=== PATIENT | female | born 1965 | race Caucasian/White ===

== ENCOUNTER 2019-03-13 13:52 | Emergency (ER) | payer MEDICAID ==
[~2019-03-13] VITALS: Ht 162.6 cm; Wt 59.1 kg
[2019-03-13 14:34] VITALS: BP 154/92
[2019-03-13] MEDS ORDERED: HYDROcodone/acetaminophen 5mg/325mg tablet PO ONE (15:00)
--- NOTE | 2019-03-13 15:20 | NUR ---
PT REQUESTING SOFT C-COLLAR, PROVIDER OKAYED.
== END 2019-03-13 15:23 | disposition home or self-care (01) ==
LOC: ER 13:53
DX: M54.2 Cervicalgia (principal); M16.11 Unilateral primary osteoarthritis, right hip; I10 Essential (primary) hypertension; G89.29 Other chronic pain; F12.10 Cannabis abuse, uncomplicated; Z56.0 Unemployment, unspecified
CPT/HCPCS: 99282

== ENCOUNTER 2019-04-12 00:22 | Emergency (ER) | payer MEDICAID ==
[~2019-04-12] VITALS: Ht 162.6 cm; Wt 62.0 kg
[2019-04-12 00:29] VITALS: BP 187/109
--- NOTE | 2019-04-12 00:34 | NUR ---
Level [address] Anne at bedside when Pt placed in room and evalulated and DC'd Stroke Alert . He reports Pt's diagnosis is Quincy Palsey
[2019-04-12] MEDS ORDERED: PRED20TA PO (00:36)
[2019-04-12] MEDS ORDERED: ACYC-202 PO (00:36)
--- NOTE | 2019-04-12 02:40 | NUR ---
PT DC READY AND DISCHARGED BY ANOTHER RN PRIOR TO ME ASSESSING HER.
== END 2019-04-12 00:53 | disposition home or self-care (01) ==
LOC: ER 00:22
DX: G51.0 Bell's palsy (principal); H92.02 Otalgia, left ear; I10 Essential (primary) hypertension; G89.29 Other chronic pain; F12.90 Cannabis use, unspecified, uncomplicated; Z79.899 Other long term (current) drug therapy; Z56.0 Unemployment, unspecified
CPT/HCPCS: 93005; 99283

== ENCOUNTER 2020-12-26 10:28 | Emergency (ER) | payer MEDICAID ==
[~2020-12-26] VITALS: Ht 162.6 cm; Wt 65.9 kg
[~2020-12-26 10:28] MED LIST: LIDOcaine 1% 30ml preserv. free vial ONE
[2020-12-26 10:38] VITALS: BP 208/107
[2020-12-26] MEDS ORDERED: HYDROcodone/acetaminophen 10/325mg tab PO ONE (11:25)
[2020-12-26] MEDS ORDERED: SULF1TAB49 PO (11:29)
[2020-12-26] MEDS ORDERED: CEPH-585 PO (11:29)
== END 2020-12-26 11:40 | disposition home or self-care (01) ==
LOC: ER 10:29
DX: L02.512 Cutaneous abscess of left hand (principal); I10 Essential (primary) hypertension; G89.29 Other chronic pain; F12.90 Cannabis use, unspecified, uncomplicated; F11.90 Opioid use, unspecified, uncomplicated; Z56.0 Unemployment, unspecified; Z72.89 Other problems related to lifestyle
CPT/HCPCS: 10060; 99283; J2001

== ENCOUNTER 2021-03-19 11:40 | Inpatient (IN) | payer MEDICAID ==
[~2021-03-19] VITALS: Ht 162.6 cm; Wt 88.7 kg
[2021-03-19] MEDS ORDERED: DOXY100C97 PO ×2 (13:16→13:17)
[2021-03-19 14:37] LABS: BASOPHILS % (AUTO) 0.2 % (0-1); EOSINOPHILS % (AUTO) 0 % (0-6); HEMATOCRIT 41.4 % (35.0-45.0); LYMPHOCYTES # (AUTO) 0.4 X10'3 (1.1-4.8); LYMPHOCYTES % (AUTO) 2.9 % (21-51); MEAN CORPUSCULAR HEMOGLOBIN 28.2 PG (27.0-31.0); MEAN CORPUSCULAR HGB CONC 33.8 g/dL (33.0-36.5); MEAN CORPUSCULAR VOLUME 83.6 FL (78-98); MEAN PLATELET VOLUME 6.9 FL (7.4-10.4); MONOCYTES # (AUTO) 0.6 X10'3 (0-0.9); MONOCYTES % (AUTO) 4.1 % (2-12); NEUTROPHILS # (AUTO) 14.2 X10'3 (1.8-7.7); NEUTROPHILS % (AUTO) 92.8 % (42-75); PLATELET COUNT 62 X10'3 (140-440); RED BLOOD COUNT 4.96 X10'6 (4.20-5.60); RED CELL DISTRIBUTION WIDTH 16.9 % (11.5-14.5); WHITE BLOOD COUNT 15.3 X10'3 (4.5-11.0)
[2021-03-19 14:49] LABS: ALANINE AMINOTRANSFERASE 21 U/L (12-78); ALBUMIN 3.1 G/DL (3.4-5.0); ALKALINE PHOSPHATASE 124 IU/L (46-116); ANION GAP 10 (8-16); ASPARTATE AMINO TRANSFERASE 24 U/L (10-37); BILIRUBIN,TOTAL 4.6 MG/DL (0.1-1.0); BLOOD UREA NITROGEN 12 MG/DL (7-18); CALCIUM 8.4 MG/DL (8.5-10.1); CHLORIDE 98 MMOL/L (99-107); CREATININE 1.09 MG/DL (0.40-0.90); POTASSIUM 4.1 MMOL/L (3.5-5.1); SODIUM 131 MMOL/L (135-145); eGFR 52 ML/MIN
[2021-03-19 14:52] LABS: ALBUMIN/GLOBULIN RATIO 0.6 (1.1-1.5); GLUCOSE 124 MG/DL (70-104)
[2021-03-19 14:58] LABS: ANISOCYTOSIS 1+; PLATELET ESTIMATE DECREASED; TOTAL CELLS COUNTED 100
[2021-03-19 14:59] LABS: POLYCHROMASIA 1+; TOXIC VACUOLATION 1+
[2021-03-19] MEDS ORDERED: acetaminophen 325mg tablet PO ONE (15:05)
[2021-03-19] MEDS ORDERED: iohexol 300mg/ml 100ml inj. ONE (15:17)
--- NOTE | 2021-03-19 15:20 | NUR ---
pt ambulated with steady gait to/from restroom without incident.
--- NOTE | 2021-03-19 15:35 | NUR ---
pt reports headache, medicated with toradol.
[2021-03-19] MEDS ORDERED: ketorolac tromethamine 15mg/ml inj. IV ONE (15:55)
[2021-03-19] MEDS ORDERED: AMOX-117 PO (16:05)
[2021-03-19] MEDS ORDERED: DOXYCYCLINE 100MG CAPSULE PO STA (16:05)
[2021-03-19] MEDS ORDERED: amox tr/potassium clavulanate 875/125mg TAB PO ONE (16:05)
[2021-03-19] MEDS ORDERED: normal saline 1000ML IV soln IV ONE (16:25)
[2021-03-19] MEDS ORDERED: azithromycin/NS 500mg/250ml 250 ML IV ONE (16:50)
[2021-03-19] MEDS ORDERED: CefTRIAXone/D5W-Rocephin 1gm 50 ML IV ONE (16:50)
[2021-03-19] MEDS ORDERED: magnesium hydroxide 30ml (MOM) UD suspension PO PRN (17:15)
[2021-03-19] MEDS ORDERED: acetaminophen 650mg rectal suppository RC PRN (17:15)
[2021-03-19] MEDS ORDERED: bisacodyl 10mg suppository rectal RC PRN (17:15)
[2021-03-19] MEDS ORDERED: HYDROcodone/acetaminophen 5mg/325mg tablet PO PRN (17:15)
[2021-03-19] MEDS ORDERED: potassium CL 10mEq/100ml bag 100 ML IV PRN (17:15)
[2021-03-19] MEDS ORDERED: metoclopramide 5 mg/ml inj IV PRN (17:15)
[2021-03-19] MEDS ORDERED: magnesium 2GM in 50ml NS 50 ML IV PRN (17:15)
[2021-03-19] MEDS ORDERED: ondansetron 4mg rapidly disintigrating tab PO PRN (17:15)
[2021-03-19] MEDS ORDERED: magnesium Cl slow-release 64mg tablet PO PRN (17:15)
[2021-03-19] MEDS ORDERED: mag hydrox/Alum hydrox/simeth 30ml oral suspension PO PRN (17:15)
[2021-03-19] MEDS ORDERED: acetaminophen 325mg tablet PO PRN ×2 (17:15)
[2021-03-19] MEDS ORDERED: ondansetron/PF 4mg/2ml inj IV PRN (17:15)
[2021-03-19] MEDS ORDERED: magnesium 4gm in 100ml NS 100 ML IV PRN (17:15)
[2021-03-19] MEDS ORDERED: potassium Cl 20 mEq SR tablet PO PRN (17:15)
[2021-03-19] MEDS: normal saline 1000ml 1,000 ML IV SCH (17:27)
--- NOTE | 2021-03-19 17:35 | NUR ---
pt ambulated with steady gait to/from restroom without incident.
--- NOTE | 2021-03-19 17:35 | NUR ---
Note undone in [facility] - 03/19/[address] garcia at [facility] Addendum: 03/19/21 at 1735 by ERIN Amendment undone in [facility] - 03/19/21 at [address] hong at [facility]
[2021-03-19] MEDS ORDERED: NO HOME MEDS (17:37)
[2021-03-19] MEDS: K and/or MAG REPLACEMENT MC SCH (20:00)
[2021-03-19] MEDS: docusate sod 100mg capsule PO SCH (20:00)
--- NOTE | 2021-03-19 21:39 | NUR ---
repositioned and beddings changed, also changed patient into a gown.
[2021-03-19] MEDS ORDERED: morphine 4 MG/ML inj SYRINge IV ONE (21:55)
--- NOTE | 2021-03-19 21:55 | NUR ---
Dr. Willoughby notified of pt's increased respirations, wet sounding lungs, and pain. Given orders for pain relief.
[2021-03-19] MEDS: HYDROcodone/acetaminophen 10/325mg tab PO PRN (22:33)
--- NOTE | 2021-03-19 22:54 | NUR ---
Report given to LATONIA Bedolla on the Surg. floor.
[2021-03-19 23:31] VITALS: BP 157/86
[2021-03-20] MEDS: HYDROcodone/acetaminophen 10/325mg tab PO PRN ×5 (02:54→23:02)
[2021-03-20] MEDS: normal saline 1000ml 1,000 ML IV SCH ×3 (03:12→23:15)
[2021-03-20 03:18] VITALS: BP 155/90
--- NOTE | 2021-03-20 06:25 | NUR ---
Pt C/O bloody sputum.Dr Willoughby notified.
[2021-03-20 07:00] VITALS: BP 160/88
--- NOTE | 2021-03-20 07:03 | NUR ---
Patient in room [facility] 346. I have received report from ney LINCOLN traveler and had the opportunity to ask questions and assume patient care.
[2021-03-20 07:32] LABS: BASOPHILS % (AUTO) 0.2 % (0-1); EOSINOPHILS % (AUTO) 0.1 % (0-6); HEMATOCRIT 39.8 % (35.0-45.0); HEMOGLOBIN 13.6 g/dl (12.0-16.0); LYMPHOCYTES # (AUTO) 0.8 X10'3 (1.1-4.8); LYMPHOCYTES % (AUTO) 5.5 % (21-51); MEAN CORPUSCULAR HEMOGLOBIN 28.3 PG (27.0-31.0); MEAN CORPUSCULAR HGB CONC 34.2 g/dL (33.0-36.5); MEAN CORPUSCULAR VOLUME 82.8 FL (78-98); MEAN PLATELET VOLUME 7.1 FL (7.4-10.4); MONOCYTES # (AUTO) 0.6 X10'3 (0-0.9); MONOCYTES % (AUTO) 4.3 % (2-12); NEUTROPHILS # (AUTO) 12.8 X10'3 (1.8-7.7); NEUTROPHILS % (AUTO) 89.9 % (42-75); PLATELET COUNT 56 X10'3 (140-440); RED CELL DISTRIBUTION WIDTH 17.4 % (11.5-14.5); WHITE BLOOD COUNT 14.2 X10'3 (4.5-11.0)
[2021-03-20 07:49] LABS: TOTAL CELLS COUNTED 100
[2021-03-20 07:50] LABS: ANISOCYTOSIS 1+; PLATELET ESTIMATE DECREASED; POLYCHROMASIA FEW; TOXIC VACUOLATION 1+
[2021-03-20] MEDS ORDERED: enoxaparin 40mg/0.4ml syringe SUBCUT SCH (08:00)
[2021-03-20] MEDS: K and/or MAG REPLACEMENT MC SCH ×2 (08:00→20:00)
[2021-03-20 08:02] LABS: ALANINE AMINOTRANSFERASE 17 U/L (12-78); ALBUMIN 2.5 G/DL (3.4-5.0); ALBUMIN/GLOBULIN RATIO 0.5 (1.1-1.5); ALKALINE PHOSPHATASE 97 IU/L (46-116); ANION GAP 12 (8-16); ASPARTATE AMINO TRANSFERASE 25 U/L (10-37); BILIRUBIN,TOTAL 2.9 MG/DL (0.1-1.0); BLOOD UREA NITROGEN 15 MG/DL (7-18); BUN/CREATININE RATIO 17.4 (6.6-38.0); CALCIUM 8.2 MG/DL (8.5-10.1); CHLORIDE 106 MMOL/L (99-107); CREATININE 0.86 MG/DL (0.40-0.90); MAGNESIUM 1.7 MG/DL (1.5-2.4); POTASSIUM 3.8 MMOL/L (3.5-5.1); SODIUM 140 MMOL/L (135-145); TOTAL CARBON DIOXIDE 22.2 MMOL/L (24-32); TOTAL PROTEIN 7.3 G/DL (6.4-8.2); eGFR 68 ML/MIN
[2021-03-20] MEDS: docusate sod 100mg capsule PO SCH ×2 (08:03→20:00)
[2021-03-20 08:04] LABS: GLUCOSE 112 MG/DL (70-104)
[2021-03-20] MEDS: CefTRIAXone/D5W-Rocephin 1gm 50 ML IV SCH (08:04)
[2021-03-20] MEDS: azithromycin/NS 500mg/250ml 250 ML IV SCH (08:05)
[2021-03-20 11:00] VITALS: BP 195/116
--- NOTE | 2021-03-20 11:06 | NUR ---
PAGER ID: [phone] MESSAGE: Avril aDllas#[id number] FYI-Procal 17.72 (9.07), platelets 56 (62), 97.6, HR 77, RR20, 99% RA, 195/116 (manual 190/102). Pt states Lisinopril 20mg daily, none taken for months. Could we get hydralazine plz. Thank you [phone]
[2021-03-20 11:20] VITALS: BP 190/102
[2021-03-20] MEDS ORDERED: lisinopril 20mg tablet PO STA (11:23)
[2021-03-20 12:00] VITALS: BP 159/92
--- NOTE | 2021-03-20 18:58 | NUR ---
Problems reprioritized. Patient report given, questions answered & plan of care reviewed with Wendy LINCOLN Traveler.
[2021-03-20 19:00] VITALS: BP 170/86
[2021-03-20] MEDS: temazepam 15mg capsule PO PRN (23:02)
[2021-03-21] VITALS: BP 166/86
--- NOTE | 2021-03-21 07:18 | NUR ---
Problems reprioritized. Patient report given, questions answered & plan of care reviewed with
[2021-03-21 07:28] LABS: ALANINE AMINOTRANSFERASE 11 U/L (12-78); ALBUMIN 2.3 G/DL (3.4-5.0); ALBUMIN/GLOBULIN RATIO 0.6 (1.1-1.5); ALKALINE PHOSPHATASE 89 IU/L (46-116); ANION GAP 10 (8-16); ASPARTATE AMINO TRANSFERASE 29 U/L (10-37); BILIRUBIN,TOTAL 1.3 MG/DL (0.1-1.0); BLOOD UREA NITROGEN 15 MG/DL (7-18); BUN/CREATININE RATIO 23.4 (6.6-38.0); CHLORIDE 110 MMOL/L (99-107); CREATININE 0.64 MG/DL (0.40-0.90); MAGNESIUM 1.7 MG/DL (1.5-2.4); POTASSIUM 3.2 MMOL/L (3.5-5.1); SODIUM 142 MMOL/L (135-145); TOTAL PROTEIN 6.2 G/DL (6.4-8.2); eGFR > 90 ML/MIN
[2021-03-21 07:32] LABS: BASOPHILS % (AUTO) 0.3 % (0-1); EOSINOPHILS # (AUTO) 0.2 X10'3 (0-0.9); EOSINOPHILS % (AUTO) 2.1 % (0-6); HEMATOCRIT 38.4 % (35.0-45.0); LYMPHOCYTES % (AUTO) 9.6 % (21-51); MEAN CORPUSCULAR HEMOGLOBIN 28.3 PG (27.0-31.0); MEAN CORPUSCULAR HGB CONC 33.8 g/dL (33.0-36.5); MEAN CORPUSCULAR VOLUME 83.6 FL (78-98); MEAN PLATELET VOLUME 7.5 FL (7.4-10.4); MONOCYTES # (AUTO) 0.6 X10'3 (0-0.9); MONOCYTES % (AUTO) 6.3 % (2-12); NEUTROPHILS # (AUTO) 8.3 X10'3 (1.8-7.7); NEUTROPHILS % (AUTO) 81.7 % (42-75); PLATELET COUNT 77 X10'3 (140-440); RED BLOOD COUNT 4.59 X10'6 (4.20-5.60); RED CELL DISTRIBUTION WIDTH 17.9 % (11.5-14.5); WHITE BLOOD COUNT 10.2 X10'3 (4.5-11.0)
[2021-03-21 07:44] LABS: GLUCOSE 106 MG/DL (70-104)
[2021-03-21 08:00] VITALS: BP 162/83
[2021-03-21] MEDS: docusate sod 100mg capsule PO SCH ×2 (08:00→20:00)
[2021-03-21] MEDS: normal saline 1000ml 1,000 ML IV SCH (08:08)
[2021-03-21] MEDS: lisinopril 20mg tablet PO SCH (08:10)
[2021-03-21] MEDS: HYDROcodone/acetaminophen 10/325mg tab PO PRN ×2 (08:15→17:20)
[2021-03-21] MEDS: potassium Cl 20 mEq SR tablet PO PRN ×2 (08:17→14:53)
[2021-03-21] MEDS: K and/or MAG REPLACEMENT MC SCH ×2 (08:18→20:00)
[2021-03-21] MEDS: LORazepam 1 MG tablet PO PRN ×2 (10:48→21:41)
[2021-03-21 11:00] VITALS: BP 159/86
[2021-03-21] MEDS: CefTRIAXone/D5W-Rocephin 1gm 50 ML IV SCH (11:34)
[2021-03-21] MEDS: azithromycin/NS 500mg/250ml 250 ML IV SCH (12:42)
[2021-03-21] MEDS: ketorolac trometh. 30mg/ml inj. IV PRN (14:51)
[2021-03-21] MEDS ORDERED: VANCOMYCIN LEVEL IV ONE (16:30)
[2021-03-21] MEDS ORDERED: vancomycin/NS 1 GM ADD-VANTAGE 250 ML IV SCH (17:00)
[2021-03-21 18:00] VITALS: BP 193/100
[2021-03-21 18:40] VITALS: BP 193/100
--- NOTE | 2021-03-21 18:41 | NUR ---
Report given to Shad LINCOLN, all questions answered, no current concerns. Pt using restroom, talkative but tired.
[2021-03-21] MEDS: lactobacillus rhamnosus 10,000 MMU CELLS/CAPSULE PO SCH (20:00)
[2021-03-21] MEDS: temazepam 15mg capsule PO PRN (23:43)
[2021-03-22] VITALS: BP 155/78
[2021-03-22] MEDS: normal saline 1000ml 1,000 ML IV SCH (05:24)
[2021-03-22] MEDS: ketorolac trometh. 30mg/ml inj. IV PRN (05:30)
[2021-03-22 06:15] LABS: BASOPHILS % (AUTO) 0.4 % (0-1); EOSINOPHILS # (AUTO) 0.1 X10'3 (0-0.9); EOSINOPHILS % (AUTO) 0.8 % (0-6); HEMATOCRIT 42.7 % (35.0-45.0); HEMOGLOBIN 14.8 g/dl (12.0-16.0); LYMPHOCYTES # (AUTO) 1.6 X10'3 (1.1-4.8); MEAN CORPUSCULAR HEMOGLOBIN 28.3 PG (27.0-31.0); MEAN CORPUSCULAR HGB CONC 34.7 g/dL (33.0-36.5); MEAN CORPUSCULAR VOLUME 81.7 FL (78-98); MEAN PLATELET VOLUME 7.2 FL (7.4-10.4); MONOCYTES # (AUTO) 0.9 X10'3 (0-0.9); NEUTROPHILS # (AUTO) 7.5 X10'3 (1.8-7.7); NEUTROPHILS % (AUTO) 73.8 % (42-75); PLATELET COUNT 119 X10'3 (140-440); RED BLOOD COUNT 5.23 X10'6 (4.20-5.60); RED CELL DISTRIBUTION WIDTH 17.2 % (11.5-14.5); WHITE BLOOD COUNT 10.2 X10'3 (4.5-11.0)
[2021-03-22 06:20] LABS: ALANINE AMINOTRANSFERASE 22 U/L (12-78); ALBUMIN 2.8 G/DL (3.4-5.0); ALBUMIN/GLOBULIN RATIO 0.6 (1.1-1.5); ALKALINE PHOSPHATASE 118 IU/L (46-116); ANION GAP 11 (8-16); ASPARTATE AMINO TRANSFERASE 40 U/L (10-37); BILIRUBIN,TOTAL 1.7 MG/DL (0.1-1.0); BLOOD UREA NITROGEN 7 MG/DL (7-18); BUN/CREATININE RATIO 11.3 (6.6-38.0); CALCIUM 8.2 MG/DL (8.5-10.1); CHLORIDE 104 MMOL/L (99-107); CREATININE 0.62 MG/DL (0.40-0.90); MAGNESIUM 1.5 MG/DL (1.5-2.4); POTASSIUM 3.5 MMOL/L (3.5-5.1); SODIUM 138 MMOL/L (135-145); TOTAL PROTEIN 7.8 G/DL (6.4-8.2); eGFR > 90 ML/MIN
[2021-03-22 06:21] LABS: GLUCOSE 99 MG/DL (70-104)
--- NOTE | 2021-03-22 07:02 | NUR ---
Problems reprioritized. Patient report given, questions answered & plan of care reviewed with JEREMIAH. Addendum: 03/22/21 at 0703 by Hakan Foreman RN Amended: Links added.
[2021-03-22] MEDS: azithromycin/NS 500mg/250ml 250 ML IV SCH (08:39)
[2021-03-22] MEDS: CefTRIAXone/D5W-Rocephin 1gm 50 ML IV SCH (08:39)
[2021-03-22] MEDS: lactobacillus rhamnosus 10,000 MMU CELLS/CAPSULE PO SCH (08:41)
[2021-03-22] MEDS: HYDROcodone/acetaminophen 10/325mg tab PO PRN ×2 (08:41→13:33)
[2021-03-22] MEDS: docusate sod 100mg capsule PO SCH (08:41)
[2021-03-22] MEDS: lisinopril 20mg tablet PO SCH (08:43)
[2021-03-22] MEDS: K and/or MAG REPLACEMENT MC SCH (08:57)
[2021-03-22 14:00] VITALS: BP 163/95
[2021-03-22] MEDS ORDERED: LISI40TA13 PO (14:10)
[2021-03-22] MEDS ORDERED: AZIT-83 PO (14:10)
[2021-03-22] MEDS ORDERED: CEFD300C3 PO (14:10)
--- NOTE | 2021-03-22 17:17 | NUR ---
PATIENT DISCHARGED HOME. AAOX4, NO SIGNES OF DISTRESS, NO ACUTE PAIN. pATINETS IV REMOVED, ARM BANDS REMOVED. PATINET GIVEN DISCHARGE INSTRUCTIONS AND VERBALIZED UNDERSTANDING.
[2021-03-23] MEDS ORDERED: azithromycin 250mg tablet PO SCH (08:00)
== END 2021-03-22 16:25 | disposition home or self-care (01) | DRG 720 ==
LOC: ER 11:41 → ED HOLD 17:17 → EDBEDREQ 22:06 → SUR 3N 23:00
PROVIDERS: ADMIT Family Medicine; ATTEND Family Medicine
PROC: BW241ZZ Computerized Tomography (CT Scan) of Chest and Abdomen using Low Osmolar Contrast (ICD-10-PCS; principal; 2021-03-19)
DX: A41.9 Sepsis, unspecified organism (principal); N17.9 Acute kidney failure, unspecified; J18.9 Pneumonia, unspecified organism; D69.6 Thrombocytopenia, unspecified; E87.1 Hypo-osmolality and hyponatremia; K74.60 Unspecified cirrhosis of liver; Z20.822 Contact with and (suspected) exposure to COVID-19; E87.6 Hypokalemia; F41.1 Generalized anxiety disorder; F12.90 Cannabis use, unspecified, uncomplicated; F17.210 Nicotine dependence, cigarettes, uncomplicated; I10 Essential (primary) hypertension; G89.29 Other chronic pain; Z56.0 Unemployment, unspecified; Z79.899 Other long term (current) drug therapy; Z71.6 Tobacco abuse counseling
CPT/HCPCS: 36415; 71045; 71260; 80053; 83605; 83735; 83880; 84145; 85007; 85025; 87040; 87070; 87077; 87186; 87502; 87503; 87635; 94667; 94760; 96374; 99285; C9803; G0378; J0456; J0696; J1885; J2270; J2405; J2765; J3370; J7030; Q9967

== ENCOUNTER 2021-11-07 16:03 | Emergency (ER) | payer MEDICAID ==
[~2021-11-07] VITALS: Ht 162.6 cm; Wt 61.4 kg
[2021-11-07 16:14] VITALS: BP 181/115
[2021-11-07] MEDS ORDERED: LIDOcaine 1% W/epiNEPHrine 1:100,000 20ml vial SQ ONE (17:00)
[2021-11-07] MEDS ORDERED: acetaminophen 325mg tablet PO ONE (17:00)
[2021-11-07] MEDS ORDERED: mupirocin 2% ointment 22GM TP STA (17:31)
[2021-11-07] MEDS ORDERED: cephalexin 250mg capsule PO ONE (17:35)
[2021-11-07] MEDS ORDERED: TETanus/Pertussis (Acell)/Diphther VAC/PF (Tdap-Adult) 0.5ml syringe IMVAC ONE (17:35)
[2021-11-07] MEDS ORDERED: CEPH500C81 PO (18:01)
== END 2021-11-07 18:17 | disposition home or self-care (01) ==
LOC: ER 16:04
DX: S89.82XA Other specified injuries of left lower leg, initial encounter (principal); M54.2 Cervicalgia; M54.59 Other low back pain; G89.29 Other chronic pain; I10 Essential (primary) hypertension; F12.10 Cannabis abuse, uncomplicated; F14.10 Cocaine abuse, uncomplicated; Z79.2 Long term (current) use of antibiotics; X58.XXXA Exposure to other specified factors, initial encounter; Y93.89 Activity, other specified; Y92.89 Other specified places as the place of occurrence of the external cause; Y99.8 Other external cause status
CPT/HCPCS: 90471; 90715; 99284

== ENCOUNTER 2021-12-31 10:49 | Emergency (ER) | payer MEDICAID ==
[~2021-12-31] VITALS: Ht 162.6 cm; Wt 60.0 kg
[2021-12-31] MEDS ORDERED: LIDOcaine 5% patch TP STA (14:02)
[2021-12-31] MEDS ORDERED: triamcinolone acetonide 40mg/ml inj IM ONE (14:05)
[2021-12-31] MEDS ORDERED: traMADol 50MG tablet PO ONE (14:05)
[2021-12-31] MEDS ORDERED: ondansetron/PF 4mg/2ml inj IV ONE (15:30)
[2021-12-31] MEDS ORDERED: morphine 4 MG/ML inj SYRINge IV ONE (15:30)
[2021-12-31] MEDS ORDERED: cyclobenzaprine 10mg tablet PO ONE (16:55)
[2021-12-31] MEDS ORDERED: CYCL5TAB14 PO (17:44)
[2021-12-31 17:45] VITALS: BP 158/87
== END 2021-12-31 17:46 | disposition home or self-care (01) ==
LOC: ER 10:51
DX: M54.50 Low back pain, unspecified (principal); I10 Essential (primary) hypertension; G89.29 Other chronic pain; F12.90 Cannabis use, unspecified, uncomplicated; F11.90 Opioid use, unspecified, uncomplicated; Z98.890 Other specified postprocedural states; Z72.89 Other problems related to lifestyle; Z56.0 Unemployment, unspecified; Z79.899 Other long term (current) drug therapy
CPT/HCPCS: 74176; 96372; 96374; 96375; 99284; J2270; J2405; J3301

== ENCOUNTER 2022-04-22 11:32 | Emergency (ER) | payer MEDICAID ==
[~2022-04-22] VITALS: Ht 162.6 cm; Wt 60.0 kg
[~2022-04-22 11:32] MED LIST changes: +CYCL5TAB14 PO; -LIDOcaine 1% 30ml preserv. free vial ONE
[2022-04-22] MEDS ORDERED: HYDROcodone/acetaminophen 5mg/325mg tablet PO ONE (13:40)
--- NOTE | 2022-04-22 19:30 | NUR ---
pt reports increase in pain
[2022-04-23] VITALS (7 sets, daily range): BP systolic 109–132; BP diastolic 64–77
--- NOTE | 2022-04-23 01:00 | NUR ---
Documented assessment reviewed, database report writer agrees with this assessment.
[2022-04-23] MEDS ORDERED: HYDROmorphone 1 mg/ml syringe IV ONE (03:35)
[2022-04-23 03:41] LABS: BASOPHILS % (AUTO) 1.1 % (0-1); EOSINOPHILS # (AUTO) 0.1 X10'3 (0-0.9); EOSINOPHILS % (AUTO) 1.9 % (0-6); HEMATOCRIT 22.8 % (35.0-45.0); LYMPHOCYTES # (AUTO) 1.2 X10'3 (1.1-4.8); LYMPHOCYTES % (AUTO) 29.6 % (21-51); MEAN CORPUSCULAR HEMOGLOBIN 18.5 PG (27.0-31.0); MEAN CORPUSCULAR VOLUME 61.7 FL (78-98); MEAN PLATELET VOLUME 8.3 FL (7.4-10.4); MONOCYTES # (AUTO) 0.5 X10'3 (0-0.9); MONOCYTES % (AUTO) 11.6 % (2-12); NEUTROPHILS # (AUTO) 2.3 X10'3 (1.8-7.7); NEUTROPHILS % (AUTO) 55.8 % (42-75); PLATELET COUNT 193 X10'3 (140-440); RED CELL DISTRIBUTION WIDTH 19.3 % (11.5-14.5); WHITE BLOOD COUNT 4.2 X10'3 (4.5-11.0)
[2022-04-23 04:08] LABS: ALANINE AMINOTRANSFERASE 40 U/L (12-78); ALBUMIN 2.3 G/DL (3.4-5.0); ALBUMIN/GLOBULIN RATIO 0.6 (1.1-1.5); ALKALINE PHOSPHATASE 92 IU/L (46-116); ANION GAP 5 (8-16); ASPARTATE AMINO TRANSFERASE 35 U/L (10-37); BILIRUBIN,TOTAL 0.6 MG/DL (0.1-1.0); BLOOD UREA NITROGEN 7 MG/DL (7-18); BUN/CREATININE RATIO 12.7 (6.6-38.0); C-REACTIVE PROTEIN 0.82 MG/DL (0.0-0.5); CALCIUM 7.8 MG/DL (8.5-10.1); CHLORIDE 104 MMOL/L (99-107); CREATININE 0.55 MG/DL (0.40-0.90); GLUCOSE 115 MG/DL (70-104); MAGNESIUM 1.6 MG/DL (1.5-2.4); SODIUM 137 MMOL/L (135-145); TOTAL CARBON DIOXIDE 28.1 MMOL/L (24-32); TOTAL PROTEIN 6.2 G/DL (6.4-8.2); eGFR > 90 ML/MIN
[2022-04-23] MEDS ORDERED: HYDROmorphone 1 mg/ml syringe IV STA (04:26)
[2022-04-23 04:31] LABS: HEMOGLOBIN 6.8 g/dl (12.0-16.0)
[2022-04-23] MEDS ORDERED: potassium Cl 20 mEq SR tablet PO ONE (04:40)
[2022-04-23] MEDS ORDERED: magnesium 2GM in 50ml NS 50 ML IV ONE (04:40)
[2022-04-23] MEDS ORDERED: potassium CL 10mEq/100ml bag 100 ML IV ONE (04:40)
[2022-04-23] MEDS ORDERED: HYDROcodone/acetaminophen 10/325mg tab PO ONE (06:10)
--- NOTE | 2022-04-23 06:11 | NUR ---
Patient reports dilaudid ineffective in pain control, requesting norco, states this was more helpful for pain control, provider aware, verbal order for norco entered by freelance writer.
[2022-04-23 06:25] LABS: PLATELET ESTIMATE NORMAL
[2022-04-23 06:26] LABS: ANISOCYTOSIS 2+; HYPOCHROMASIA 2+; MICROCYTOSIS 2+
--- NOTE | 2022-04-23 11:36 | NUR ---
Notified Dr. Yanez of pt's pain and moaning, and requesting pain. Dr. Yanez will put in order for pain med and states she will transferred.
[2022-04-23] MEDS ORDERED: morphine 4 MG/ML inj SYRINge IV ONE (11:45)
--- NOTE | 2022-04-23 12:20 | NUR ---
PT REQUESTING FOR MEAL ,NOTIFIED DR PINEDA ,OKAYED TO [facility] FOR PT.
--- NOTE | 2022-04-23 12:26 | NUR ---
PT REQUESTING FOR NICOTINE PATCH ,INFORMED DR ARANGO THAT PT SMOKE QUATER PACK A DAY ,VERBAL ORDER FOR NICOTINE 7MG PATCH ONCE.
[2022-04-23] MEDS ORDERED: nicotine 7mg patch - 24hr TD ONE (12:30)
--- NOTE | 2022-04-23 14:57 | NUR ---
CALLED [facility] FOR TRANSFER. ETA UNKNOWN WILL CALL BACK WITH ETA. CALL MADE AT [phone]
[2022-04-23] MEDS ORDERED: oxyCODONE/APAP 10/325mg tablet PO ONE (15:45)
--- NOTE | 2022-04-23 15:48 | NUR ---
Pt awaiting bls transportation to [facility]. MD Dobbins is ok w/ transport via BLS vs ALS after blood transfusion is finished.
--- NOTE | 2022-04-23 15:48 | NUR ---
Increased blood transfusion rate as per order of Dr. Ross. No transfusion rxn.
--- NOTE | 2022-04-23 15:50 | NUR ---
Gisella RN and ER receivable clerk made aware of delay in transportation to [facility] due to blood transfusion. Agrees w/ plan to send pt on BLS instead of ACLS due to pt condition. Pt will be receiving pain medication before transportation for pain management. Pt agrees w/ plan.
== END 2022-04-23 16:30 | disposition short-term general hospital (02) ==
LOC: ER 11:33
DX: M46.26 Osteomyelitis of vertebra, lumbar region (principal); Z20.822 Contact with and (suspected) exposure to COVID-19; M46.46 Discitis, unspecified, lumbar region; M48.061 Spinal stenosis, lumbar region without neurogenic claudication; D64.9 Anemia, unspecified; I10 Essential (primary) hypertension; G89.29 Other chronic pain; F17.200 Nicotine dependence, unspecified, uncomplicated; F12.90 Cannabis use, unspecified, uncomplicated; F15.90 Other stimulant use, unspecified, uncomplicated; F11.90 Opioid use, unspecified, uncomplicated; Z98.890 Other specified postprocedural states; Z72.89 Other problems related to lifestyle; Z59.00 Homelessness unspecified; Z56.0 Unemployment, unspecified; Z79.899 Other long term (current) drug therapy
CPT/HCPCS: 36415; 36430; 72128; 72131; 72148; 80053; 83605; 83735; 84145; 85008; 85025; 86140; 86885; 86900; 86901; 86920; 87040; 87635; 96365; 96368; 96375; 96376; 99291; C9803; J1170; J2270; J3475; J3480; J7030; J7040; P9016; 87077

== ENCOUNTER 2022-06-11 17:42 | Emergency (ER) | payer MEDICAID ==
[~2022-06-11] VITALS: Ht 162.6 cm; Wt 56.0 kg
[2022-06-11 17:48] VITALS: BP 123/96
[2022-06-11] MEDS ORDERED: ondansetron/PF 4mg/2ml inj IV ONE (18:35)
[2022-06-11] MEDS ORDERED: morphine 4 MG/ML inj SYRINge IV ONE (18:35)
[2022-06-11 19:08] LABS: BASOPHILS % (AUTO) 0.5 % (0-1); EOSINOPHILS # (AUTO) 0.1 X10'3 (0-0.9); EOSINOPHILS % (AUTO) 0.7 % (0-6); HEMATOCRIT 35.2 % (35.0-45.0); HEMOGLOBIN 11.7 g/dl (12.0-16.0); LYMPHOCYTES % (AUTO) 23.2 % (21-51); MEAN CORPUSCULAR HEMOGLOBIN 23.9 PG (27.0-31.0); MEAN CORPUSCULAR HGB CONC 33.2 g/dL (33.0-36.5); MEAN CORPUSCULAR VOLUME 72.2 FL (78-98); MEAN PLATELET VOLUME 7.9 FL (7.4-10.4); MONOCYTES # (AUTO) 0.8 X10'3 (0-0.9); MONOCYTES % (AUTO) 9.8 % (2-12); NEUTROPHILS # (AUTO) 5.6 X10'3 (1.8-7.7); NEUTROPHILS % (AUTO) 65.8 % (42-75); PLATELET COUNT 277 X10'3 (140-440); RED BLOOD COUNT 4.87 X10'6 (4.20-5.60); RED CELL DISTRIBUTION WIDTH 26.2 % (11.5-14.5); WHITE BLOOD COUNT 8.5 X10'3 (4.5-11.0)
[2022-06-11 19:20] LABS: ALANINE AMINOTRANSFERASE 75 U/L (12-78); ALBUMIN 2.7 G/DL (3.4-5.0); ALBUMIN/GLOBULIN RATIO 0.5 (1.1-1.5); ALKALINE PHOSPHATASE 190 IU/L (46-116); ANION GAP 5 (8-16); ASPARTATE AMINO TRANSFERASE 119 U/L (10-37); BILIRUBIN,TOTAL 0.6 MG/DL (0.1-1.0); BLOOD UREA NITROGEN 10 MG/DL (7-18); BUN/CREATININE RATIO 16.7 (6.6-38.0); CALCIUM 8.5 MG/DL (8.5-10.1); CHLORIDE 102 MMOL/L (99-107); MAGNESIUM 1.7 MG/DL (1.5-2.4); SODIUM 135 MMOL/L (135-145); TOTAL CARBON DIOXIDE 27.8 MMOL/L (24-32); TOTAL PROTEIN 8.5 G/DL (6.4-8.2); eGFR > 90 ML/MIN
[2022-06-11 19:24] LABS: GLUCOSE 86 MG/DL (70-104)
[2022-06-11] MEDS ORDERED: HYDROmorphone 1 mg/ml syringe IV ONE (19:35)
[2022-06-11] MEDS ORDERED: OXYC-149 PO (20:38)
[2022-06-11] MEDS ORDERED: oxyCODONE/APAP 10/325mg tablet PO ONE (20:40)
--- NOTE | 2022-06-11 21:09 | NUR ---
iv dc'd pt being discharged dressing applied
[2022-06-11 22:25] LABS: ANISOCYTOSIS 2+; HYPOCHROMASIA 1+; MICROCYTOSIS 1+; PLATELET ESTIMATE NORMAL
[2022-06-11 22:26] LABS: SPHEROCYTES FEW
== END 2022-06-11 21:10 | disposition home or self-care (01) ==
LOC: ER 17:43
DX: G89.29 Other chronic pain (principal); M54.50 Low back pain, unspecified; I10 Essential (primary) hypertension; F12.90 Cannabis use, unspecified, uncomplicated; F15.20 Other stimulant dependence, uncomplicated; Z59.00 Homelessness unspecified; Z56.0 Unemployment, unspecified
CPT/HCPCS: 36415; 80053; 83605; 83735; 84145; 85008; 85025; 87040; 96374; 96375; 99284; J1170; J2270; J2405

== ENCOUNTER 2022-06-17 12:41 | Emergency (ER) | payer MEDICAID ==
[~2022-06-17] VITALS: Ht 162.6 cm; Wt 56.0 kg
[~2022-06-17 12:41] MED LIST changes: +OXYC-149 PO
[2022-06-17 12:54] VITALS: BP 138/66
[2022-06-17] MEDS ORDERED: HYDROcodone/acetaminophen 10/325mg tab PO ONE (14:50)
[2022-06-17 15:22] LABS: BASOPHILS % (AUTO) 0.3 % (0-1); EOSINOPHILS % (AUTO) 0.8 % (0-6); HEMATOCRIT 31.2 % (35.0-45.0); HEMOGLOBIN 10.1 g/dl (12.0-16.0); LYMPHOCYTES # (AUTO) 0.9 X10'3 (1.1-4.8); LYMPHOCYTES % (AUTO) 17.3 % (21-51); MEAN CORPUSCULAR HEMOGLOBIN 23.5 PG (27.0-31.0); MEAN CORPUSCULAR HGB CONC 32.4 g/dL (33.0-36.5); MEAN CORPUSCULAR VOLUME 72.5 FL (78-98); MONOCYTES # (AUTO) 0.5 X10'3 (0-0.9); MONOCYTES % (AUTO) 8.7 % (2-12); NEUTROPHILS # (AUTO) 3.8 X10'3 (1.8-7.7); NEUTROPHILS % (AUTO) 72.9 % (42-75); PLATELET COUNT 184 X10'3 (140-440); RED BLOOD COUNT 4.31 X10'6 (4.20-5.60); RED CELL DISTRIBUTION WIDTH 24.3 % (11.5-14.5); WHITE BLOOD COUNT 5.2 X10'3 (4.5-11.0)
[2022-06-17 15:38] LABS: ALANINE AMINOTRANSFERASE 37 U/L (12-78); ALBUMIN 2.3 G/DL (3.4-5.0); ALBUMIN/GLOBULIN RATIO 0.5 (1.1-1.5); ALKALINE PHOSPHATASE 160 IU/L (46-116); ANION GAP 5 (8-16); ASPARTATE AMINO TRANSFERASE 40 U/L (10-37); BILIRUBIN,TOTAL 0.4 MG/DL (0.1-1.0); BLOOD UREA NITROGEN 6 MG/DL (7-18); BUN/CREATININE RATIO 11.5 (10.0-20.0); C-REACTIVE PROTEIN 3.58 MG/DL (0.0-0.5); CALCIUM 8.6 MG/DL (8.5-10.1); CHLORIDE 102 MMOL/L (99-107); CREATININE 0.52 MG/DL (0.40-0.90); GLUCOSE 133 MG/DL (70-104); POTASSIUM 4.4 MMOL/L (3.5-5.1); SODIUM 137 MMOL/L (135-145); TOTAL CARBON DIOXIDE 30.2 MMOL/L (24-32); TOTAL PROTEIN 7.4 G/DL (6.4-8.2); eGFR > 90 ML/MIN
[2022-06-17 15:42] LABS: PLATELET ESTIMATE NORMAL
[2022-06-17 15:43] LABS: ANISOCYTOSIS 3+; ELLIPTOCYTES FEW; HYPOCHROMASIA 1+; MICROCYTOSIS 1+; POLYCHROMASIA FEW; SCHISTOCYTES FEW
[2022-06-17] MEDS ORDERED: IBUP-1986 PO (16:12)
[2022-06-17] MEDS ORDERED: TRAM50TA2 PO ×2 (16:12)
[2022-06-17] MEDS ORDERED: ibuprofen 200mg tablet PO ONE (17:55)
--- NOTE | 2022-06-17 18:07 | NUR ---
[facility] CONTACTED FOR TRANSPORTATION FOR PT
[2022-06-18] MEDS ORDERED: TRAM50TA2 PO (13:58)
== END 2022-06-17 18:13 | disposition home or self-care (01) ==
LOC: ER 12:41
DX: G89.29 Other chronic pain (principal); M54.9 Dorsalgia, unspecified; M46.26 Osteomyelitis of vertebra, lumbar region; I10 Essential (primary) hypertension; F17.200 Nicotine dependence, unspecified, uncomplicated; F12.10 Cannabis abuse, uncomplicated; F15.10 Other stimulant abuse, uncomplicated; Z59.00 Homelessness unspecified; Z56.0 Unemployment, unspecified; F11.10 Opioid abuse, uncomplicated; Z79.899 Other long term (current) drug therapy
CPT/HCPCS: 36415; 71045; 80053; 85008; 85025; 85651; 86140; 99284

== ENCOUNTER 2023-10-12 14:05 | Inpatient (IN) | payer MEDICAID ==
[~2023-10-12] VITALS: Ht 162.6 cm; Wt 60.6 kg
[~2023-10-12 14:05] MED LIST changes: +IBUP-1986 PO; +TRAM50TA2 PO
[2023-10-12 15:11] LABS: BASOPHILS % (AUTO) 0.2 % (0-1); EOSINOPHILS # (AUTO) 0.2 X10'3 (0-0.9); EOSINOPHILS % (AUTO) 1.7 % (0-6); HEMATOCRIT 36.3 % (35.0-45.0); HEMOGLOBIN 12.3 g/dl (12.0-16.0); LYMPHOCYTES # (AUTO) 1.3 X10'3 (1.1-4.8); LYMPHOCYTES % (AUTO) 9.6 % (21-51); MEAN CORPUSCULAR VOLUME 76.5 FL (78-98); MEAN PLATELET VOLUME 7.5 FL (7.4-10.4); MONOCYTES # (AUTO) 0.9 X10'3 (0-0.9); NEUTROPHILS # (AUTO) 10.8 X10'3 (1.8-7.7); NEUTROPHILS % (AUTO) 81.5 % (42-75); PLATELET COUNT 142 X10'3 (140-440); RED BLOOD COUNT 4.74 X10'6 (4.20-5.60); RED CELL DISTRIBUTION WIDTH 17.7 % (11.5-14.5); WHITE BLOOD COUNT 13.3 X10'3 (4.5-11.0)
[2023-10-12] MEDS: CefTRIAXone 2gm/D5W 50ml BAG 50 ML IV ONE (15:11)
[2023-10-12 16:41] LABS: ALBUMIN 2.8 G/DL (3.4-5.0); ANION GAP 5 (8-16); CALCIUM 8.5 MG/DL (8.5-10.1); CHLORIDE 101 MMOL/L (99-107); GLUCOSE 163 MG/DL (70-104); MAGNESIUM 1.5 MG/DL (1.5-2.4); POTASSIUM 3.4 MMOL/L (3.5-5.1); SODIUM 132 MMOL/L (135-145); TOTAL CARBON DIOXIDE 25.7 MMOL/L (24-32)
[2023-10-12 16:42] LABS: BLOOD UREA NITROGEN 24 MG/DL (7-18); BUN/CREATININE RATIO 30.8 (10.0-20.0); CREATININE 0.78 MG/DL (0.40-0.90); eCRCL 66 ML/MIN; eGFR 75 ML/MIN
[2023-10-12 18:28] LABS: BILIRUBIN,URINE SMALL (Neg); CLARITY,URINE CLOUDY (Clear); COLOR,URINE YELLOW (Yellow); GLUCOSE, URINE NEGATIVE (Neg); KETONES,URINE NEGATIVE (Neg); LEUKOCYTE ESTERASE ,URINE TRACE (Neg); NITRITES, URINE POSITIVE (Neg); OCCULT BLOOD,URINE NEGATIVE (Neg); PROTEIN,URINE TRACE mg/dl (Neg); UROBILINOGEN,URINE >=8.0 E.U/dL (0.2-1.0)
[2023-10-12 18:35] LABS: UA COLLECTION TYPE CLN CATCH MIDSTREAM
[2023-10-12 18:37] LABS: BACTERIA,URINE 4+ /HPF (Neg); RBC,URINE NONE SEEN /HPF (0-2); SQUAMOUS EPITHELIAL CELL,UR MANY /LPF (FEW)
[2023-10-12] MEDS: ketorolac tromethamine 15mg/ml inj. IV ONE (18:59)
[2023-10-12] MEDS: vancomycin/NS 1 GM ADD-VANTAGE 250 ML X 1 DOSE IV ONE (18:59)
[2023-10-12] MEDS ORDERED: magnesium sulf-water 4G/100mL 100 ML IV PRN (19:40)
[2023-10-12] MEDS ORDERED: magnesium hydroxide 30ml (MOM) UD suspension PO PRN (19:40)
[2023-10-12] MEDS ORDERED: potassium Cl 20 mEq SR tablet PO PRN (19:40)
[2023-10-12] MEDS ORDERED: mag hydrox/Alum hydrox/simeth 30ml oral suspension PO PRN (19:40)
[2023-10-12] MEDS ORDERED: acetaminophen 325mg tablet PO PRN (19:40)
[2023-10-12] MEDS ORDERED: ondansetron/PF 4mg/2ml inj IV PRN (19:40)
[2023-10-12] MEDS ORDERED: magnesium sulf-water 2g/50mL 50 ML IV PRN (19:40)
[2023-10-12] MEDS ORDERED: potassium Cl 40MEQ/1/2NS 520ml 520 ML IV PRN (19:40)
[2023-10-12] MEDS: normal saline 500ml IV soln 500 ML IV ONE (19:50)
[2023-10-12 20:00] LABS: ALANINE AMINOTRANSFERASE 28 U/L (12-78); ALBUMIN/GLOBULIN RATIO 0.7 (1.1-1.5); ALKALINE PHOSPHATASE 125 IU/L (46-116); ASPARTATE AMINO TRANSFERASE 40 U/L (10-37); BILIRUBIN,DIRECT 0.8 MG/DL (0-0.3); BILIRUBIN,TOTAL 2.1 MG/DL (0.1-1.0); TOTAL PROTEIN 6.9 G/DL (6.4-8.2)
[2023-10-12] MEDS ORDERED: HYDROcodone/acetaminophen 5mg/325mg tablet PO PRN (20:10)
[2023-10-12] MEDS ORDERED: HYDROcodone/acetaminophen 10/325mg tab PO PRN (20:10)
[2023-10-12 20:11] LABS: HEMOGLOBIN A1C 5.3 % (4.5-6.2)
[2023-10-12] MEDS ORDERED: HYDROmorphone 2mg tablet PO PRN (20:15)
[2023-10-12] MEDS: oxyCODONE IR 5mg (immed. release) tablet PO PRN (20:48)
[2023-10-12] MEDS: potassium Cl 20 mEq SR tablet PO PRN (20:53)
[2023-10-12] MEDS: K and/or MAG REPLACEMENT MC SCH (20:54)
[2023-10-12 21:28] LABS: BILIRUBIN,URINE SMALL (Neg); CLARITY,URINE CLOUDY (Clear); GLUCOSE, URINE 100 mg/dl (Neg); KETONES,URINE NEGATIVE (Neg); LEUKOCYTE ESTERASE ,URINE TRACE (Neg); NITRITES, URINE POSITIVE (Neg); OCCULT BLOOD,URINE NEGATIVE (Neg); PROTEIN,URINE NEGATIVE (Neg)
[2023-10-12 21:29] LABS: COLOR,URINE DARK YELLOW (Yellow); UA COLLECTION TYPE NON-SPECIFIED
[2023-10-12 21:33] LABS: BACTERIA,URINE 4+ /HPF (Neg); MUCUS STRANDS NONE SEEN /LPF (Neg); SQUAMOUS EPITHELIAL CELL,UR MANY /LPF (FEW)
[2023-10-12 21:34] LABS: RBC,URINE 0-2 /HPF (0-2)
[2023-10-12 21:35] LABS: WBC CLUMPS,URINE FEW /HPF (NEGATIVE)
[2023-10-12 21:40] VITALS: BP 115/65; PULSE 71; RESP 15; TEMP 98.2; O2SAT 99
[2023-10-12 21:52] LABS: URINE AMPHETAMINE SCREEN POSITIVE (Neg); URINE BARBITUATE SCREEN NEGATIVE (Neg); URINE BENZODIAZEPINES SCREEN NEGATIVE (Neg); URINE CANNABINOID SCREEN NEGATIVE (Neg); URINE COCAINE SCREEN NEGATIVE (Neg); URINE METHADONE SCREEN POSITIVE (Neg); URINE OPIATE SCREEN NEGATIVE (Neg); URINE PHENCYCLIDINE SCREEN NEGATIVE (Neg)
[2023-10-12] MEDS: ceFAZolin/D5W- 1GM premix 50 ML IV SCH (23:35)
[2023-10-13 06:00] VITALS: BP 117/72; PULSE 83; RESP 12; TEMP 97.9; O2SAT 98
[2023-10-13 06:39] LABS: BASOPHILS % (AUTO) 0.1 % (0-1); EOSINOPHILS # (AUTO) 0.3 X10'3 (0-0.9); EOSINOPHILS % (AUTO) 2.9 % (0-6); HEMATOCRIT 34.1 % (35.0-45.0); HEMOGLOBIN 11.7 g/dl (12.0-16.0); LYMPHOCYTES # (AUTO) 0.8 X10'3 (1.1-4.8); LYMPHOCYTES % (AUTO) 7.2 % (21-51); MEAN CORPUSCULAR HEMOGLOBIN 26.7 PG (27.0-31.0); MEAN CORPUSCULAR HGB CONC 34.4 g/dL (33.0-36.5); MEAN CORPUSCULAR VOLUME 77.5 FL (78-98); MEAN PLATELET VOLUME 7.5 FL (7.4-10.4); MONOCYTES # (AUTO) 0.7 X10'3 (0-0.9); MONOCYTES % (AUTO) 6.2 % (2-12); NEUTROPHILS # (AUTO) 9.2 X10'3 (1.8-7.7); NEUTROPHILS % (AUTO) 83.6 % (42-75); PLATELET COUNT 111 X10'3 (140-440)
[2023-10-13 06:58] LABS: ALBUMIN 2.3 G/DL (3.4-5.0); ANION GAP 7 (8-16); BLOOD UREA NITROGEN 17 MG/DL (7-18); BUN/CREATININE RATIO 27.9 (10.0-20.0); CALCIUM 8.1 MG/DL (8.5-10.1); CHLORIDE 101 MMOL/L (99-107); CREATININE 0.61 MG/DL (0.40-0.90); GLUCOSE 113 MG/DL (70-104); MAGNESIUM 1.3 MG/DL (1.5-2.4); POTASSIUM 3.9 MMOL/L (3.5-5.1); SODIUM 135 MMOL/L (135-145); TOTAL CARBON DIOXIDE 27.3 MMOL/L (24-32); eCRCL 85 ML/MIN; eGFR > 90 ML/MIN
[2023-10-13] MEDS: vancomycin/NS 1 GM ADD-VANTAGE 250 ML IV SCH (07:11)
[2023-10-13] MEDS: enoxaparin 40mg/0.4ml syringe SUBCUT SCH (08:09)
[2023-10-13] MEDS: magnesium Cl slow-release 64mg tablet PO PRN (08:09)
[2023-10-13] MEDS ORDERED: METH-603 PO (08:18)
[2023-10-13] MEDS ORDERED: LISI40TA13 PO (08:18)
[2023-10-13] MEDS: piperacillin/tazo 4.5gm/100ml 100 ML IV SCH (09:56)
[2023-10-13 10:00] VITALS: BP 113/65; PULSE 81; RESP 14; TEMP 97.6; O2SAT 96
[2023-10-13] MEDS: methadone 10mg tablet PO ONE (10:20)
[2023-10-13] MEDS: nicotine 7mg patch - 24hr TD SCH (17:30)
[2023-10-13 18:00] VITALS: BP 111/63; PULSE 77; RESP 14; TEMP 98.4; O2SAT 96
[2023-10-13 20:00] VITALS: RESP 14; O2SAT 96
[2023-10-13 22:00] VITALS: BP 119/71; PULSE 77; RESP 12; TEMP 98.5; O2SAT 96
[2023-10-14] MEDS: cefazolin 2gm/D5W 100mL 100 ML IV SCH (00:08)
[2023-10-14 06:00] VITALS: BP 131/71; PULSE 77; RESP 16; TEMP 98.1; O2SAT 99
[2023-10-14] MEDS: VANCOMYCIN LEVEL IV ONE (06:35)
[2023-10-14 06:39] LABS: BASOPHILS % (AUTO) 0.1 % (0-1); EOSINOPHILS # (AUTO) 0.2 X10'3 (0-0.9); EOSINOPHILS % (AUTO) 1.8 % (0-6); HEMATOCRIT 32.4 % (35.0-45.0); HEMOGLOBIN 10.7 g/dl (12.0-16.0); LYMPHOCYTES # (AUTO) 0.7 X10'3 (1.1-4.8); LYMPHOCYTES % (AUTO) 6.5 % (21-51); MEAN CORPUSCULAR HEMOGLOBIN 25.8 PG (27.0-31.0); MEAN CORPUSCULAR HGB CONC 32.9 g/dL (33.0-36.5); MEAN CORPUSCULAR VOLUME 78.4 FL (78-98); MEAN PLATELET VOLUME 7.3 FL (7.4-10.4); MONOCYTES # (AUTO) 0.8 X10'3 (0-0.9); MONOCYTES % (AUTO) 6.7 % (2-12); NEUTROPHILS # (AUTO) 9.6 X10'3 (1.8-7.7); NEUTROPHILS % (AUTO) 84.9 % (42-75); PLATELET COUNT 94 X10'3 (140-440); RED BLOOD COUNT 4.13 X10'6 (4.20-5.60); RED CELL DISTRIBUTION WIDTH 17.5 % (11.5-14.5); WHITE BLOOD COUNT 11.3 X10'3 (4.5-11.0)
[2023-10-14 06:48] LABS: ANION GAP 4 (8-16); BLOOD UREA NITROGEN 11 MG/DL (7-18); BUN/CREATININE RATIO 15.7 (10.0-20.0); CALCIUM 8.3 MG/DL (8.5-10.1); CHLORIDE 104 MMOL/L (99-107); GLUCOSE 185 MG/DL (70-104); MAGNESIUM 1.2 MG/DL (1.5-2.4); POTASSIUM 4.4 MMOL/L (3.5-5.1); SODIUM 135 MMOL/L (135-145); TOTAL CARBON DIOXIDE 26.9 MMOL/L (24-32); VANCOMYCIN,TROUGH 9.1 ug/mL (10.0-20.0); eCRCL 74 ML/MIN; eGFR 85 ML/MIN
[2023-10-14] MEDS: VANCOmycin 1250MG/NS 250ml Bag 250 ML IV SCH (07:21)
[2023-10-14] MEDS: methadone 10mg tablet PO SCH (08:46)
[2023-10-14 08:47] VITALS: RESP 16; O2SAT 97
[2023-10-14] MEDS: lisinopril 20mg tablet PO SCH (08:47)
[2023-10-14 10:00] VITALS: BP 125/70; PULSE 78; RESP 18; TEMP 97.7; O2SAT 97
[2023-10-14] MEDS ORDERED: ondansetron 4mg rapidly disintigrating tab PO PRN (13:36)
[2023-10-14 18:00] VITALS: BP 135/94; PULSE 69; RESP 20; TEMP 98.1; O2SAT 99
[2023-10-14 22:00] VITALS: BP 136/76; PULSE 83; RESP 17; TEMP 98.6; O2SAT 98
[2023-10-15 05:58] LABS: BASOPHILS % (AUTO) 0.3 % (0-1); EOSINOPHILS # (AUTO) 0.3 X10'3 (0-0.9); EOSINOPHILS % (AUTO) 2.6 % (0-6); HEMATOCRIT 32.6 % (35.0-45.0); HEMOGLOBIN 10.7 g/dl (12.0-16.0); LYMPHOCYTES # (AUTO) 0.9 X10'3 (1.1-4.8); LYMPHOCYTES % (AUTO) 8.2 % (21-51); MEAN CORPUSCULAR HEMOGLOBIN 25.6 PG (27.0-31.0); MEAN CORPUSCULAR HGB CONC 32.9 g/dL (33.0-36.5); MEAN PLATELET VOLUME 7.3 FL (7.4-10.4); MONOCYTES # (AUTO) 1.2 X10'3 (0-0.9); MONOCYTES % (AUTO) 10.6 % (2-12); NEUTROPHILS # (AUTO) 9.1 X10'3 (1.8-7.7); NEUTROPHILS % (AUTO) 78.3 % (42-75); PLATELET COUNT 119 X10'3 (140-440); RED BLOOD COUNT 4.18 X10'6 (4.20-5.60); RED CELL DISTRIBUTION WIDTH 17.7 % (11.5-14.5); WHITE BLOOD COUNT 11.6 X10'3 (4.5-11.0)
[2023-10-15 06:08] LABS: ALBUMIN 1.9 G/DL (3.4-5.0); ANION GAP 7 (8-16); BLOOD UREA NITROGEN 10 MG/DL (7-18); BUN/CREATININE RATIO 17.2 (10.0-20.0); CALCIUM 8.2 MG/DL (8.5-10.1); CHLORIDE 105 MMOL/L (99-107); CREATININE 0.58 MG/DL (0.40-0.90); GLUCOSE 111 MG/DL (70-104); MAGNESIUM 1.4 MG/DL (1.5-2.4); POTASSIUM 4.7 MMOL/L (3.5-5.1); SODIUM 137 MMOL/L (135-145); TOTAL CARBON DIOXIDE 24.8 MMOL/L (24-32); eCRCL 89 ML/MIN; eGFR > 90 ML/MIN
[2023-10-15 06:26] VITALS: BP 136/72; PULSE 84; RESP 18; TEMP 97.6; O2SAT 97
[2023-10-15 07:16] VITALS: RESP 18; O2SAT 97
[2023-10-15 10:00] VITALS: BP 143/78; PULSE 72; RESP 18; TEMP 98; O2SAT 100
[2023-10-15 18:00] VITALS: BP 147/82; PULSE 72; RESP 16; TEMP 97.7; O2SAT 99
[2023-10-15] MEDS: VANCOMYCIN LEVEL IV ONE (18:30)
[2023-10-15 22:00] VITALS: BP 137/75; PULSE 75; RESP 14; TEMP 97.7; O2SAT 99
[2023-10-16 05:17] LABS: BASOPHILS % (AUTO) 0.4 % (0-1); EOSINOPHILS # (AUTO) 0.2 X10'3 (0-0.9); HEMATOCRIT 31.7 % (35.0-45.0); HEMOGLOBIN 10.6 g/dl (12.0-16.0); LYMPHOCYTES # (AUTO) 0.9 X10'3 (1.1-4.8); LYMPHOCYTES % (AUTO) 14.3 % (21-51); MEAN CORPUSCULAR HEMOGLOBIN 26.2 PG (27.0-31.0); MEAN CORPUSCULAR HGB CONC 33.5 g/dL (33.0-36.5); MEAN CORPUSCULAR VOLUME 78.2 FL (78-98); MONOCYTES # (AUTO) 0.7 X10'3 (0-0.9); MONOCYTES % (AUTO) 11.7 % (2-12); NEUTROPHILS # (AUTO) 4.3 X10'3 (1.8-7.7); NEUTROPHILS % (AUTO) 69.6 % (42-75); PLATELET COUNT 113 X10'3 (140-440); RED BLOOD COUNT 4.05 X10'6 (4.20-5.60); RED CELL DISTRIBUTION WIDTH 17.7 % (11.5-14.5); WHITE BLOOD COUNT 6.2 X10'3 (4.5-11.0)
[2023-10-16 05:30] LABS: ALBUMIN 1.8 G/DL (3.4-5.0); ANION GAP 6 (8-16); BLOOD UREA NITROGEN 13 MG/DL (7-18); BUN/CREATININE RATIO 23.6 (10.0-20.0); CHLORIDE 107 MMOL/L (99-107); CREATININE 0.55 MG/DL (0.40-0.90); GLUCOSE 105 MG/DL (70-104); MAGNESIUM 1.4 MG/DL (1.5-2.4); POTASSIUM 4.7 MMOL/L (3.5-5.1); SODIUM 140 MMOL/L (135-145); eCRCL 94 ML/MIN; eGFR > 90 ML/MIN
[2023-10-16 06:00] VITALS: BP 137/73; PULSE 75; RESP 18; TEMP 96.2; O2SAT 97
[2023-10-16 09:00] VITALS: RESP 16; O2SAT 97
[2023-10-16 10:00] VITALS: BP 135/74; PULSE 71; RESP 14; TEMP 97.8; O2SAT 98
[2023-10-16] MEDS ORDERED: magnesium sulf-water 4G/100mL 100 ML IV PRN (13:15)
[2023-10-16] MEDS ORDERED: magnesium Cl slow-release 64mg tablet PO PRN (13:15)
[2023-10-16] MEDS ORDERED: potassium Cl 20 mEq SR tablet PO PRN ×2 (13:15)
[2023-10-16] MEDS ORDERED: potassium Cl 40MEQ/1/2NS 520ml 520 ML IV PRN (13:15)
[2023-10-16] MEDS: magnesium sulf-water 2g/50mL 50 ML IV PRN (14:07)
[2023-10-16 18:00] VITALS: BP 135/76; PULSE 70; RESP 16; TEMP 97.6; O2SAT 98
[2023-10-16 20:00] VITALS: RESP 16; O2SAT 98
[2023-10-16] MEDS: VANCOMYCIN 1,500MG in normal saline IV soln 300 ML IV SCH (20:45)
[2023-10-16 22:00] VITALS: BP 121/72; PULSE 67; RESP 17; TEMP 97.4; O2SAT 96
[2023-10-17 06:00] VITALS: BP 144/79; PULSE 64; RESP 16; TEMP 97.5; O2SAT 97
[2023-10-17 07:47] LABS: BASOPHILS % (AUTO) 0.5 % (0-1); EOSINOPHILS # (AUTO) 0.2 X10'3 (0-0.9); EOSINOPHILS % (AUTO) 4.5 % (0-6); HEMATOCRIT 32.5 % (35.0-45.0); HEMOGLOBIN 10.7 g/dl (12.0-16.0); LYMPHOCYTES # (AUTO) 0.9 X10'3 (1.1-4.8); LYMPHOCYTES % (AUTO) 16.7 % (21-51); MEAN CORPUSCULAR HGB CONC 32.9 g/dL (33.0-36.5); MEAN PLATELET VOLUME 6.6 FL (7.4-10.4); MONOCYTES # (AUTO) 0.6 X10'3 (0-0.9); MONOCYTES % (AUTO) 10.3 % (2-12); NEUTROPHILS # (AUTO) 3.7 X10'3 (1.8-7.7); PLATELET COUNT 122 X10'3 (140-440); RED BLOOD COUNT 4.11 X10'6 (4.20-5.60); RED CELL DISTRIBUTION WIDTH 17.9 % (11.5-14.5); WHITE BLOOD COUNT 5.4 X10'3 (4.5-11.0)
[2023-10-17 07:55] LABS: ALBUMIN 1.8 G/DL (3.4-5.0); ANION GAP 4 (8-16); BLOOD UREA NITROGEN 11 MG/DL (7-18); BUN/CREATININE RATIO 23.4 (10.0-20.0); CALCIUM 8.1 MG/DL (8.5-10.1); CHLORIDE 106 MMOL/L (99-107); CREATININE 0.47 MG/DL (0.40-0.90); GLUCOSE 99 MG/DL (70-104); MAGNESIUM 1.7 MG/DL (1.5-2.4); POTASSIUM 4.6 MMOL/L (3.5-5.1); SODIUM 136 MMOL/L (135-145); TOTAL CARBON DIOXIDE 26.4 MMOL/L (24-32); eCRCL 110 ML/MIN; eGFR > 90 ML/MIN
[2023-10-17 09:00] VITALS: RESP 18; O2SAT 97
[2023-10-17 10:00] VITALS: BP 151/79; PULSE 73; RESP 16; TEMP 97.8; O2SAT 98
[2023-10-17] MEDS ORDERED: NALO4SPR BOTHNARES (12:09)
[2023-10-17] MEDS ORDERED: CEPH500C2 PO (12:09)
[2023-10-17] MEDS ORDERED: NICO-630 TD (12:09)
[2023-10-18] MEDS ORDERED: VANCOMYCIN LEVEL IV ONE (06:30)
== END 2023-10-17 15:05 | disposition home or self-care (01) | DRG 383 ==
LOC: ER 14:06 → ED HOLD 19:45 → ORTHO 4S 21:40
PROVIDERS: ADMIT Surgery; ATTEND Family Medicine
DX: L03.116 Cellulitis of left lower limb (principal); K70.30 Alcoholic cirrhosis of liver without ascites; D64.9 Anemia, unspecified; G89.4 Chronic pain syndrome; F11.10 Opioid abuse, uncomplicated; D72.829 Elevated white blood cell count, unspecified; M54.9 Dorsalgia, unspecified; E87.6 Hypokalemia; I10 Essential (primary) hypertension; Z79.899 Other long term (current) drug therapy; Z59.00 Homelessness unspecified; Z87.440 Personal history of urinary (tract) infections
CPT/HCPCS: 36415; 80048; 80076; 80202; 80305; 81001; 83036; 83605; 83735; 84145; 85025; 87040; 87081; 93005; 93971; 97161; 97530; 99285; A6258; G0378; J0690; J0696; J1650; J1885; J2543; J3370; J7030; J7040

== ENCOUNTER 2023-10-20 14:11 | Inpatient (IN) | payer MEDICAID ==
[~2023-10-20] VITALS: Ht 160 cm; Wt 66.5 kg
[~2023-10-20 14:11] MED LIST changes: +CEPH500C2 PO; -CYCL5TAB14 PO; -IBUP-1986 PO; +LISI40TA13 PO; +METH-603 PO; +NALO4SPR BOTHNARES; +NICO-630 TD; -OXYC-149 PO; -TRAM50TA2 PO
[2023-10-20] MEDS: morphine 4 MG/ML inj SYRINge IV ONE (17:47)
[2023-10-20] MEDS: piperacillin/tazo 4.5gm/100ml 100 ML IV STA (17:47)
[2023-10-20] MEDS: normal saline 1000ml 1,000 ML IV ONE (17:53)
[2023-10-20 18:45] LABS: BASOPHILS % (AUTO) 0.9 % (0-1); EOSINOPHILS # (AUTO) 0.2 X10'3 (0-0.9); EOSINOPHILS % (AUTO) 3.5 % (0-6); HEMATOCRIT 31.7 % (35.0-45.0); HEMOGLOBIN 10.5 g/dl (12.0-16.0); LYMPHOCYTES # (AUTO) 1.3 X10'3 (1.1-4.8); LYMPHOCYTES % (AUTO) 22.4 % (21-51); MEAN CORPUSCULAR HEMOGLOBIN 26.6 PG (27.0-31.0); MEAN CORPUSCULAR HGB CONC 33.3 g/dL (33.0-36.5); MEAN CORPUSCULAR VOLUME 79.9 FL (78-98); MEAN PLATELET VOLUME 6.4 FL (7.4-10.4); MONOCYTES # (AUTO) 0.5 X10'3 (0-0.9); MONOCYTES % (AUTO) 9.4 % (2-12); NEUTROPHILS # (AUTO) 3.6 X10'3 (1.8-7.7); NEUTROPHILS % (AUTO) 63.8 % (42-75); PLATELET COUNT 174 X10'3 (140-440); RED BLOOD COUNT 3.97 X10'6 (4.20-5.60); RED CELL DISTRIBUTION WIDTH 17.9 % (11.5-14.5); WHITE BLOOD COUNT 5.7 X10'3 (4.5-11.0)
[2023-10-20 19:00] LABS: ALANINE AMINOTRANSFERASE 32 U/L (12-78); ALBUMIN 2.6 G/DL (3.4-5.0); ALBUMIN/GLOBULIN RATIO 0.6 (1.1-1.5); ALKALINE PHOSPHATASE 149 IU/L (46-116); ANION GAP 2 (8-16); ASPARTATE AMINO TRANSFERASE 40 U/L (10-37); BILIRUBIN,DIRECT 0.5 MG/DL (0-0.3); BILIRUBIN,TOTAL 1.5 MG/DL (0.1-1.0); BLOOD UREA NITROGEN 15 MG/DL (7-18); BUN/CREATININE RATIO 17.4 (10.0-20.0); C-REACTIVE PROTEIN 2.01 MG/DL (0.0-0.5); CALCIUM 8.4 MG/DL (8.5-10.1); CHLORIDE 103 MMOL/L (99-107); CREATININE 0.86 MG/DL (0.40-0.90); GLUCOSE 92 MG/DL (70-104); POTASSIUM 3.9 MMOL/L (3.5-5.1); SODIUM 136 MMOL/L (135-145); TOTAL CARBON DIOXIDE 31.2 MMOL/L (24-32); TOTAL PROTEIN 7.2 G/DL (6.4-8.2); eCRCL 60 ML/MIN; eGFR 67 ML/MIN
[2023-10-20] MEDS: vancomycin/NS 1 GM ADD-VANTAGE 250 ML X 1 DOSE IV ONE (19:34)
[2023-10-20 19:54] LABS: BILIRUBIN,URINE NEGATIVE (Neg); CLARITY,URINE CLEAR (Clear); COLOR,URINE YELLOW (Yellow); GLUCOSE, URINE NEGATIVE (Neg); KETONES,URINE NEGATIVE (Neg); LEUKOCYTE ESTERASE ,URINE NEGATIVE (Neg); NITRITES, URINE NEGATIVE (Neg); OCCULT BLOOD,URINE NEGATIVE (Neg); PH,URINE 6.5 (4.8-8.0); PROTEIN,URINE NEGATIVE (Neg)
[2023-10-20 19:56] LABS: UA COLLECTION TYPE CLN CATCH MIDSTREAM
[2023-10-20] MEDS ORDERED: potassium Cl 20 mEq SR tablet PO PRN ×2 (21:25)
[2023-10-20] MEDS ORDERED: magnesium sulf-water 2g/50mL 50 ML IV PRN (21:25)
[2023-10-20] MEDS ORDERED: ondansetron/PF 4mg/2ml inj IV PRN (21:25)
[2023-10-20] MEDS ORDERED: mag hydrox/Alum hydrox/simeth 30ml oral suspension PO PRN (21:25)
[2023-10-20] MEDS ORDERED: potassium Cl 40MEQ/1/2NS 520ml 520 ML IV PRN (21:25)
[2023-10-20] MEDS ORDERED: acetaminophen 325mg tablet PO PRN ×2 (21:25)
[2023-10-20] MEDS ORDERED: magnesium hydroxide 30ml (MOM) UD suspension PO PRN (21:25)
[2023-10-20] MEDS ORDERED: magnesium sulf-water 4G/100mL 100 ML IV PRN (21:25)
[2023-10-20] MEDS: normal saline 1000ml 1,000 ML IV SCH (23:20)
[2023-10-21] VITALS (7 sets, daily range): BP systolic 132–149; BP diastolic 70–91; PULSE 61–75; RESP 10–20; TEMP 97.3–98.3; O2SAT 92–100
[2023-10-21] MEDS: piperacillin/tazo 3.375gm/50ml 50 ML IV SCH (02:29)
[2023-10-21 07:21] LABS: BASOPHILS # (AUTO) 0.1 X10'3 (0-0.2); BASOPHILS % (AUTO) 1.2 % (0-1); EOSINOPHILS # (AUTO) 0.2 X10'3 (0-0.9); EOSINOPHILS % (AUTO) 3.9 % (0-6); HEMATOCRIT 33.6 % (35.0-45.0); HEMOGLOBIN 11.1 g/dl (12.0-16.0); LYMPHOCYTES # (AUTO) 1.2 X10'3 (1.1-4.8); LYMPHOCYTES % (AUTO) 21.3 % (21-51); MEAN CORPUSCULAR HEMOGLOBIN 26.7 PG (27.0-31.0); MEAN CORPUSCULAR HGB CONC 33.2 g/dL (33.0-36.5); MEAN CORPUSCULAR VOLUME 80.5 FL (78-98); MEAN PLATELET VOLUME 6.6 FL (7.4-10.4); MONOCYTES # (AUTO) 0.5 X10'3 (0-0.9); MONOCYTES % (AUTO) 8.8 % (2-12); NEUTROPHILS # (AUTO) 3.6 X10'3 (1.8-7.7); NEUTROPHILS % (AUTO) 64.8 % (42-75); PLATELET COUNT 188 X10'3 (140-440); RED BLOOD COUNT 4.17 X10'6 (4.20-5.60); RED CELL DISTRIBUTION WIDTH 17.8 % (11.5-14.5); WHITE BLOOD COUNT 5.5 X10'3 (4.5-11.0)
[2023-10-21 07:28] LABS: APTT 29 SECONDS (22-32); INR 1.2 INR; PROTHROMBIN TIME 12.7 SECONDS (9.0-12.0)
[2023-10-21 07:37] LABS: ALANINE AMINOTRANSFERASE 30 U/L (12-78); ALBUMIN 2.3 G/DL (3.4-5.0); ALBUMIN/GLOBULIN RATIO 0.5 (1.1-1.5); ALKALINE PHOSPHATASE 135 IU/L (46-116); ANION GAP 4 (8-16); ASPARTATE AMINO TRANSFERASE 36 U/L (10-37); BILIRUBIN,TOTAL 1.8 MG/DL (0.1-1.0); BLOOD UREA NITROGEN 13 MG/DL (7-18); BUN/CREATININE RATIO 15.9 (10.0-20.0); CALCIUM 8.3 MG/DL (8.5-10.1); CHLORIDE 105 MMOL/L (99-107); CREATININE 0.82 MG/DL (0.40-0.90); GLUCOSE 106 MG/DL (70-104); MAGNESIUM 1.8 MG/DL (1.5-2.4); PHOSPHORUS 3.9 MG/DL (2.3-4.5); POTASSIUM 4.8 MMOL/L (3.5-5.1); SODIUM 138 MMOL/L (135-145); TOTAL PROTEIN 6.8 G/DL (6.4-8.2); eCRCL 63 ML/MIN; eGFR 71 ML/MIN
[2023-10-21] MEDS: K and/or MAG REPLACEMENT MC SCH (08:00)
[2023-10-21] MEDS: vancomycin/NS 1 GM ADD-VANTAGE 250 ML IV SCH (08:27)
[2023-10-21] MEDS: methadone 10mg tablet PO SCH (08:28)
[2023-10-21] MEDS: lisinopril 20mg tablet PO SCH (08:29)
[2023-10-21] MEDS ORDERED: ondansetron 4mg rapidly disintigrating tab PO PRN (10:15)
[2023-10-21] MEDS: morphine 2 MG/ML inj. syringe IV PRN (13:01)
[2023-10-21] MEDS: enoxaparin 40mg/0.4ml syringe SQ SCH (20:48)
[2023-10-22 02:00] VITALS: BP 146/75; PULSE 77; RESP 18; TEMP 97.8; O2SAT 99
[2023-10-22 07:00] VITALS: BP 121/64; PULSE 101; RESP 16; TEMP 97.7; O2SAT 94
[2023-10-22] MEDS ORDERED: VANCOMYCIN LEVEL IV ONE (07:30)
[2023-10-22 07:58] LABS: BASOPHILS % (AUTO) 0.9 % (0-1); EOSINOPHILS # (AUTO) 0.1 X10'3 (0-0.9); EOSINOPHILS % (AUTO) 3.3 % (0-6); HEMATOCRIT 30.5 % (35.0-45.0); LYMPHOCYTES # (AUTO) 0.8 X10'3 (1.1-4.8); LYMPHOCYTES % (AUTO) 23.4 % (21-51); MEAN CORPUSCULAR HEMOGLOBIN 26.5 PG (27.0-31.0); MEAN CORPUSCULAR HGB CONC 32.9 g/dL (33.0-36.5); MEAN CORPUSCULAR VOLUME 80.4 FL (78-98); MEAN PLATELET VOLUME 6.4 FL (7.4-10.4); MONOCYTES # (AUTO) 0.3 X10'3 (0-0.9); NEUTROPHILS % (AUTO) 62.4 % (42-75); PLATELET COUNT 126 X10'3 (140-440); RED BLOOD COUNT 3.79 X10'6 (4.20-5.60); RED CELL DISTRIBUTION WIDTH 17.8 % (11.5-14.5); WHITE BLOOD COUNT 3.3 X10'3 (4.5-11.0)
[2023-10-22 08:00] VITALS: RESP 16; O2SAT 97
[2023-10-22 08:01] LABS: APTT 28 SECONDS (22-32); INR 1.2 INR; PROTHROMBIN TIME 12.8 SECONDS (9.0-12.0)
[2023-10-22 08:04] LABS: ALANINE AMINOTRANSFERASE 25 U/L (12-78); ALBUMIN/GLOBULIN RATIO 0.5 (1.1-1.5); ALKALINE PHOSPHATASE 120 IU/L (46-116); ANION GAP 1 (8-16); ASPARTATE AMINO TRANSFERASE 25 U/L (10-37); BILIRUBIN,TOTAL 0.7 MG/DL (0.1-1.0); BLOOD UREA NITROGEN 18 MG/DL (7-18); BUN/CREATININE RATIO 24.7 (10.0-20.0); CALCIUM 8.1 MG/DL (8.5-10.1); CHLORIDE 105 MMOL/L (99-107); CREATININE 0.73 MG/DL (0.40-0.90); GLUCOSE 74 MG/DL (70-104); POTASSIUM 4.5 MMOL/L (3.5-5.1); SODIUM 136 MMOL/L (135-145); TOTAL CARBON DIOXIDE 29.9 MMOL/L (24-32); TOTAL PROTEIN 6.3 G/DL (6.4-8.2); eCRCL 68 ML/MIN; eGFR 81 ML/MIN
[2023-10-22 08:06] LABS: MAGNESIUM 1.4 MG/DL (1.5-2.4); PHOSPHORUS 4.2 MG/DL (2.3-4.5); VANCOMYCIN,TROUGH 15.4 ug/mL (10.0-20.0)
[2023-10-22] MEDS: magnesium Cl slow-release 64mg tablet PO PRN (10:06)
[2023-10-22] MEDS ORDERED: DOXY-243 PO (10:19)
[2023-10-22] MEDS ORDERED: NEOM28OI32 TP (10:45)
[2023-10-22 11:00] VITALS: BP 145/83; PULSE 57; RESP 16; TEMP 98.6; O2SAT 94
[2023-10-22 19:00] VITALS: RESP 16; O2SAT 97
[2023-10-22 22:00] VITALS: BP 137/68; PULSE 74; RESP 18; TEMP 97.3; O2SAT 96
[2023-10-23] MEDS: HYDROcodone/acetaminophen 5mg/325mg tablet PO PRN (04:39)
[2023-10-23 07:11] LABS: BASOPHILS % (AUTO) 0.7 % (0-1); EOSINOPHILS # (AUTO) 0.1 X10'3 (0-0.9); EOSINOPHILS % (AUTO) 3.1 % (0-6); HEMATOCRIT 29.9 % (35.0-45.0); LYMPHOCYTES # (AUTO) 0.9 X10'3 (1.1-4.8); LYMPHOCYTES % (AUTO) 23.4 % (21-51); MEAN CORPUSCULAR HEMOGLOBIN 27.1 PG (27.0-31.0); MEAN CORPUSCULAR HGB CONC 33.6 g/dL (33.0-36.5); MEAN CORPUSCULAR VOLUME 80.7 FL (78-98); MEAN PLATELET VOLUME 6.7 FL (7.4-10.4); MONOCYTES # (AUTO) 0.4 X10'3 (0-0.9); MONOCYTES % (AUTO) 9.9 % (2-12); NEUTROPHILS # (AUTO) 2.3 X10'3 (1.8-7.7); NEUTROPHILS % (AUTO) 62.9 % (42-75); PLATELET COUNT 129 X10'3 (140-440); RED CELL DISTRIBUTION WIDTH 17.8 % (11.5-14.5); WHITE BLOOD COUNT 3.7 X10'3 (4.5-11.0)
[2023-10-23 07:13] LABS: APTT 25 SECONDS (22-32); INR 1.2 INR; PROTHROMBIN TIME 12.4 SECONDS (9.0-12.0)
[2023-10-23 07:22] VITALS: BP 153/96; PULSE 85; RESP 16; TEMP 98.2; O2SAT 90
[2023-10-23 07:28] LABS: ALANINE AMINOTRANSFERASE 26 U/L (12-78); ALBUMIN/GLOBULIN RATIO 0.5 (1.1-1.5); ALKALINE PHOSPHATASE 110 IU/L (46-116); ANION GAP 2 (8-16); ASPARTATE AMINO TRANSFERASE 25 U/L (10-37); BILIRUBIN,TOTAL 0.5 MG/DL (0.1-1.0); BLOOD UREA NITROGEN 16 MG/DL (7-18); BUN/CREATININE RATIO 22.9 (10.0-20.0); CALCIUM 8.8 MG/DL (8.5-10.1); CHLORIDE 105 MMOL/L (99-107); GLUCOSE 114 MG/DL (70-104); MAGNESIUM 1.5 MG/DL (1.5-2.4); PHOSPHORUS 3.7 MG/DL (2.3-4.5); POTASSIUM 4.3 MMOL/L (3.5-5.1); SODIUM 134 MMOL/L (135-145); TOTAL CARBON DIOXIDE 26.8 MMOL/L (24-32); TOTAL PROTEIN 6.3 G/DL (6.4-8.2); eCRCL 71 ML/MIN; eGFR 85 ML/MIN
[2023-10-23 08:00] VITALS: RESP 16; O2SAT 97
== END 2023-10-23 11:10 | disposition home or self-care (01) | DRG 383 ==
LOC: ER 14:12 → ED HOLD 21:24 → PCU 3S 10-21 00:25
PROVIDERS: ADMIT Internal Medicine Pulmonary Disease; ATTEND Internal Medicine
DX: L03.116 Cellulitis of left lower limb (principal); K70.30 Alcoholic cirrhosis of liver without ascites; E88.09 Other disorders of plasma-protein metabolism, not elsewhere classified; I10 Essential (primary) hypertension; G89.29 Other chronic pain; M54.9 Dorsalgia, unspecified; F17.210 Nicotine dependence, cigarettes, uncomplicated; D64.9 Anemia, unspecified; F11.10 Opioid abuse, uncomplicated; F15.10 Other stimulant abuse, uncomplicated
CPT/HCPCS: 36415; 71045; 73700; 80048; 80053; 80076; 80202; 81003; 83605; 83735; 84100; 84145; 85025; 85610; 85730; 86140; 87040; 87081; 93005; 93306; 93971; 96365; 96367; 96375; 97116; 97161; 99291; A4615; A6446; G0378; J1650; J2270; J2543; J3370; J7030; J7040

== ENCOUNTER 2024-12-19 14:25 | Inpatient (IN) | payer MEDICAID, SELFPAY ==
[~2024-12-19] VITALS: Ht 162.6 cm; Wt 75.5 kg
[~2024-12-19 14:25] MED LIST changes: -CEPH500C2 PO; -LISI40TA13 PO; +LISI40TA20 PO; -NALO4SPR BOTHNARES; +NEOM28OI32 TP; -NICO-630 TD
--- NOTE | 2024-12-19 15:43 | RADIOLOGY REPORT ---
CLINICAL HISTORY: EXTREMITY SWELLING LEFT TECHNIQUE: Single view of the chest was obtained. COMPARISON: DI CHEST,SINGLE VIEW on DOS: 10/20/23, CHEST,SINGLE VIEW on DOS: 06/17/22, CHEST,SINGLE VIEW on DOS: 06/17/22, CT CHEST on DOS: 03/19/21, CHEST,SINGLE VIEW on DOS: 03/19/21 FINDINGS: The heart size and pulmonary vasculature are normal. The lungs are clear. There is partially imaged lumbar fusion hardware. IMPRESSION: NO ACUTE CARDIOPULMONARY PROCESS.
--- NOTE | 2024-12-19 16:16 | Physician Documentation ---
History of Present Illness General Chief Complaint: Extremity Swelling Stated Complaint: CELLULITIS IN LEG Time Seen by MD: 15:50 Primary Medical Doctor: Dr. Daniels History of Present Illness Initial Comments 59-year-old female since two the emergency department with complaints of left lower leg swelling and redness for several months. Reports prior history of the same which she reports as a cellulitis. Denies fina fever. No recent illness injury and/or other infections. Leg is obvious edematous with erythema from the thigh to the foot. She does have excellent cap refill. She was seen and evaluated in triage is pending direct bedding to the emergency department for comprehensive care admission to the hospital. Medication Reconciliation Allergies: Coded Allergies: No Known Allergies (Unverified , 12/19/24) Scheduled Lisinopril* (Lisinopril*), 1 TAB PO DAILY, (Reported) Methadone Hcl* (Dolophine*), 70 MG PO DAILY, (Reported) Neomy Sulf/Bacitrac Zn/Poly (Antibiotic Ointment), 28 GM TP BID Past Medical History Past Medical History: Hypertension, Cirrohsis, Chronic Pain, Chronic Back Pain Past Surgical History: orthopedic surgeries Smoking: Cigarettes, Less than 1 pack/day Alcohol Use: Sober Occupation: unemployed Physical Exam Physical Exam Vital Signs: Temperature: 98.6, Source: Temporal, Heart Rate: 89, Respiratory Rate: 16, BP: 129/84, Pulse Oximetry: 100, Weight: 70.450 Oxygen Flow Rate: 0 Progress Results/Orders Results/Orders Orders - JOB HUGHES PAC Non Vascular (12/19/24 16:08) Page Hospitalist (12/19/24 17:18) Fill Out Med Reconciliation (12/19/24 17:18) Acetaminophen 1,000mg/100ml Iv (Ofirmev (12/19/24 17:25) Completed Orders - JOB HUGHES PAC Non Vascular (12/19/24 16:08) Vancomycin*Pharmacy To Dose* (Vancomycin (12/19/24 16:15) Ceftriaxone/A3n-Glscgzwo 1gm (Rocephin 1 (12/19/24 16:15) Vital Signs 12/19/24 12/19/24 14:56 17:27 Temp 98.6 Pulse 89 81 Resp 16 18 B/P (MAP) 129/84 172/76 (108) Pulse Ox 100 94 O2 Flow Rate 0 Laboratory Tests Test 12/19/24 16:10 White Blood Count 19.2 H Red Blood Count 5.26 Hemoglobin 14.6 Hematocrit 41.8 Mean Corpuscular Volume 79.5 Mean Corpuscular Hemoglobin 27.8 Mean Corpuscular Hemoglobin Concent 34.9 Red Cell Distribution Width 16.2 H Platelet Count 125 L Mean Platelet Volume 7.3 L Neutrophils (%) (Auto) 90.6 H Lymphocytes (%) (Auto) 4.0 L Monocytes (%) (Auto) 4.4 Eosinophils (%) (Auto) 0.8 Basophils (%) (Auto) 0.2 Neutrophils # (Auto) 17.3 H Lymphocytes # (Auto) 0.8 L Monocytes # (Auto) 0.8 Eosinophils # (Auto) 0.2 Basophils # (Auto) 0.0 CBC Comment Differential Total Cells Counted 100 Neutrophils % (Manual) 62.0 Band Neutrophils % 26.0 H Lymphocytes % (Manual) 8.0 L Monocytes % (Manual) 3.0 Eosinophils % (Manual) 1.0 Platelet Estimate Normal Red Blood Cell Morphology Perf Poikilocytosis 1+ Basophilic Stippling Anisocytosis 1+ Sodium Level 130 L Potassium Level 3.5 Chloride Level 96 L Carbon Dioxide Level 26.2 Anion Gap 8 Blood Urea Nitrogen 18 Creatinine 0.90 Estimated GFR/1.73 m2 64 BUN/Creatinine Ratio 20.0 Glucose Level 168 H Lactic Acid Level 2.7 H Calcium Level 8.3 L Albumin 2.8 L Procalcitonin 5.99 H Chemistry Comments Medical Decision Making Differential Diagnosis 59-year-old female with a left lower leg cellulitis with or without DVT. Decision time to admit was upon evaluation at triage. Labs are pending, antibiotic coverage pending ultrasound imaging pending. Ultrasound imaging reassuring for no abscess or DVT. Labs consistent with leukocytosis with bandemia with elevated pro margot. Patient to receive Zosyn and IV Tylenol for pain. Placed in room 14. Hospital consult for admission. Discussed case with the hospitalist who kindly will admit the patient. She continues to rest comfortably he is normotensive vital signs stable . Departure Disposition: ADMITTED INPATIENT Admitted to Inpatient Unit: to hospitalist Impression: Primary Impression: Left leg cellulitis Referrals: NO PRIMARY CARE PROVIDER (PCP) Signature Scribe Signature: . Attestation: . JOB HUGHES PAC Dec 19, 2024 16:16
[2024-12-19 16:37] LABS: MEAN PLATELET VOLUME 7.3 FL (7.4-10.4); RED CELL DISTRIBUTION WIDTH 16.2 % (11.5-14.5)
--- NOTE | 2024-12-19 16:59 | RADIOLOGY REPORT ---
ULTRASOUND SOFT TISSUE: REASON FOR EXAM: LLE swelling and pain and tenderness for several months. TECHNIQUE: Real-time sector scans in the transverse and longitudinal planes were obtained through the left lower extremity soft tissues in the area of concern. FINDINGS: There is extensive diffuse subcutaneous edema. No organized fluid collection is identified. IMPRESSION: Extensive subcutaneous edema in the area of concern. No abscess identified.
[2024-12-19 17:03] LABS: CREATININE 0.90 MG/DL (0.40-0.90); TOTAL CARBON DIOXIDE 26.2 MMOL/L (24-32); eCRCL 57 ML/MIN; eGFR 64 ML/MIN
[2024-12-19 17:26] LABS: BANDS% (MANUAL) 26.0 % (0-10); EOSINOPHILS % (MANUAL) 1.0 % (0-6); LYMPHOCYTES % (MANUAL) 8.0 % (21-51); MONOCYTES % (MANUAL) 3.0 % (2-12); NEUTROPHILS % (MANUAL) 62.0 % (42-75); PLATELET ESTIMATE NORMAL
[2024-12-19] MEDS ORDERED: potassium Cl 20 mEq SR tablet PO PRN (17:50)
[2024-12-19] MEDS ORDERED: magnesium sulf-water 2g/50mL 50 ML IV PRN (17:50)
[2024-12-19] MEDS ORDERED: potassium Cl 40MEQ/1/2NS 520ml 520 ML IV PRN (17:50)
[2024-12-19] MEDS ORDERED: magnesium sulf-water 4G/100mL 100 ML IV PRN (17:50)
[2024-12-19] MEDS ORDERED: magnesium Cl slow-release 64mg tablet PO PRN (17:50)
[2024-12-19] MEDS ORDERED: ondansetron/PF 4mg/2ml inj IV PRN (17:50)
[2024-12-19] MEDS ORDERED: magnesium hydroxide 30ml (MOM) UD suspension PO PRN (17:50)
[2024-12-19] MEDS ORDERED: mag hydrox/Alum hydrox/simeth 30ml oral suspension PO PRN (17:50)
[2024-12-19 18:18] LABS: APTT 31 SECONDS (22-32); INR 1.3 INR
[2024-12-19] MEDS ORDERED: piperacillin/tazo 3.375gm/50ml 50 ML IV SCH (18:20)
--- NOTE | 2024-12-19 18:25 | HISTORY AND PHYSICAL-Residence ---
History & Physical Providers to CC Resident Creating Document: WILVER CASANOVA, RES ~ History of Present Illness Primary Medical Doctor: Dr. Daniels Reason for Admit\Complaint: Left leg cellulitis History of Present Illness A 59 years old female patient with PMH of hypertension, cellulitis of left lower leg in 2023 presented to ER with chief complaint of swelling of left leg. She reports that she had minor wound on anterior side of left lower leg x 3 days back, redness and swelling started on left lower leg and gradually progressive to upper thigh region associated with severe pain of 8 x 10 in intensity. She also complains of fever, headache and chills. She stated that she stays in a truck with a roommate and that the place is unhygienic. She denies any trauma at the site of infection and is not a diabetic. Denies any nausea, vomiting, abdominal pain, constipation or diarrhea, dizziness or syncope, fall, chest pain, shortness of breath or any symptoms. Allergies: Coded Allergies: No Known Allergies (Unverified , 12/19/24) Home Medications Home Medications Active Antibiotic Ointment (Neomy Sulf/Bacitrac Zn/Poly) 3.5 Mg-400 Unit-5,000 Unit/Gram Oint..gm. 28 Gm TP BID 7 Days apply over left lower extremity Reported Dolophine* (Methadone HCl) 10 Mg Tablet 70 Mg PO DAILY Lisinopril* (Lisinopril) 40 Mg Tablet 1 Tab PO DAILY 30 Days Past Medical History Past Medical History Hypertension, alcoholic Cirrohsis, opioid use disorder, tobacco and methamphetamine abuse Past Surgical History Surgical History Comment Spine surgery with implants, right hip surgery with titanium implants Family History Family History: Patient reports no known family medical history. Past Social History Social History Comment She has been smoking four cigarettes per day for the last around 35 years. Alcohol Use: Sober. Occasionally drinks alcohol. States that she quit drug abuse and is on methadone. Smoked fentanyl, meds in the past. IV drug abuse - methamphetamine and heroin. States that she last took methamphetamine a few months back. Occupation: unemployed Smoking: Cigarettes, Less than 1 pack/day Alcohol Use: Sober Occupation: unemployed ROS ROS Constitutional: Reports fever and chills, no dizziness, weight gain or loss, night sweats Eyes: No pain, erythema, discharge, blurring of vision ENT: No sore throat, epistaxis, tinnitus Cardiovascular:No chest pain, palpitations, syncope, lower extremity edema, paroxysmal nocturnal dyspnea Respiratory: No Shortness of breath and cough, No hemoptysis. Gastrointestinal:No Abdominal pain, vomiting,nausea and melena. Normal appetite. No constipation,diarrhea, hematemesis, Musculoskeletal: Reports Left leg redness, pain and swelling Integumentary: No change in skin, hair, nails. No swelling, bruising, abrasions Neurologic: No weakness,No headache, neck pain, numbness or tingling of the extremities, Psychiatric: No delusions, depression, loss of interest in normal activity or change in sleep pattern, hallucinations, suicidal ideations Endocrine: No fatigue, no weakness. polydipsia, polyuria, change in appetite, heat or cold intolerance, sweating, dry skin Hematological: No bleeding, petechiae, bruising Allergies: No asthma or urticaria Exam Vitals: Vital Signs Date Time Temp Pulse Resp B/P (MAP) Pulse Ox O2 Delivery O2 Flow Rate FiO2 12/19/24 17:27 81 18 172/76 (108) 94 12/19/24 14:56 98.6 0 General: Awake , alert and oriented to time,place, person, in mild distress HEENT: Atraumatic, normocephalic, PERRLA, EOMI, anicteric sclera ; pink conjunctiva, moist mucos membranes Neck: Trachea midline. Supple, normal range of motion, no JVD, no lymphadenopathy Chest and Respiratory: Equal breath sounds bilaterally, no tachypnea, wheezing, ronchi,rubs .Chest wall is symmetric and without deformity. Cardiac: S1, S2 heard,Regular rate and rhythm, no murmurs heard. Abdomen: Soft, No tenderness, No guarding or rigidity, Meyers's sign negative. normal bowel sounds x4 quadrant, no hepatosplenomegaly MSK: Range of motion of all extremities are normal. There is no joint pain or joint swelling or joint erythema. There is no muscle pain or tenderness or swelling. Extremities: warm, well-perfused, No cyanosis, clubbing, 2+ pulses felt Left lower extremity - erythema, edema and tenderness present from the foot up to the hip region. Warm to touch. 2+ pedal edema present. Pedal pulse - 2+. One minor open wound on anterior side of left lower leg is present. No cyanosis or clubbing Right lower extremity and upper extremity- no cyanosis clubbing or edema Neurological: Speech is clear, alert, and oriented x 4. No sensory or motor deficits. Cranial nerves II-XII intact. Skin: Warm and dry Psychiatry: Affect and mood are normal Diagnostic Data Last Recorded Lab Results: 12/19/24 1610 12/19/24 1610 Diagnostic Data: Laboratory Tests Test 12/19/24 16:10 Prothrombin Time 13.1 SECONDS (9.0-12.0) H INR International Normalized Ratio 1.3 INR Activated Partial Thromboplast Time 31 SECONDS (22-32) Coagulation Comments Advance Care Planning Advanced Care plannin - 30 Minutes Additional Plan Sepsis present on admission; fever,chills, marked leukocytosis, lactic acidosis Source: Most likely left leg cellulitis Patient has redness, swelling, tenderness, 2+ pedal edema with capillary refill refill time .> 2 seconds, peripheral pulses felt. X-ray of left leg showed Extensive subcutaneous edema in the area of concern. No abscess identified. CBC showed elevated white count with band cells of 26% Lactic acid is 2.7 and procalcitonin is 5.99 Preliminary blood culture is negative. Started on IV Zosyn 3.375 gms and IV vancomycin pharmacy dose Started on IV normal saline at the rate of 100 mL/hour Hypertension Continue home medication lisinopril Alcoholic Cirrohsis Follow up with LFTs History of substance use disorder Follow up with urine toxicology Code status: Full code DVT prophylaxis : Heparin GI prophylaxis: Pantoprazole Nutrition: Regular diet Physical therapy: ordered Line/tube: PIV Analgesia/sedation: Morphine / [place] p.r.n. Disposition: Patient was admitted with left leg cellulitis. Continue medical management. Resident attestation The above note has been reviewed and supervised by a senior resident PGY2/PGY3 Patient was seen, examined and discussed with the attending physician Alex Casanova MD Internal Medicine Resident, PGY 1 Date of Service: Dec 19, 2024 Billing Provider: JEREMY ROMANO MD Common Visit Codes: [id number] INP/OBS CARE (HIGH) Secondary Visit Codes: 16226-[id number] CARE PLAN 30 MINUTES WILVER CASANOVA, SEVERIANO Dec 19, 2024 18:25 JEREMY ROMANO MD Dec 21, 2024 09:04
[2024-12-19] MEDS: CefTRIAXone/D5W-Rocephin 1gm 50 ML IV ONE (18:34)
[2024-12-19] MEDS: normal saline 1000ml 1,000 ML IV SCH (18:41)
[2024-12-19] MEDS: acetaminophen 1,000mg/100ml IV 100 ML IV ONE (18:47)
[2024-12-19 19:18] LABS: CREATININE 0.83 MG/DL (0.40-0.90); PRO BRAIN NATRIURETIC PEPTIDE 209 PG/ML (0-125); TOTAL CARBON DIOXIDE 26.5 MMOL/L (24-32); eCRCL 61 ML/MIN; eGFR 70 ML/MIN
[2024-12-19] MEDS: vancomycin/NS 1 GM ADD-VANTAGE 250 ML IV SCH (19:33)
[2024-12-19 19:34] LABS: PHOSPHORUS 1.2 MG/DL (2.3-4.5)
[2024-12-19] MEDS: K and/or MAG REPLACEMENT MC SCH (20:00)
[2024-12-19] MEDS ORDERED: cefepime 1GM in D5W 50mL 50 ML IV SCH (20:00)
[2024-12-19] MEDS: docusate sod 100mg capsule PO SCH (21:46)
[2024-12-19] MEDS: heparin, porcine 5000 units/ml vial SQ SCH (21:47)
[2024-12-19] MEDS: morphine 4 MG/ML inj SYRINge IV PRN (21:47)
[2024-12-19 23:35] VITALS: BP 121/70; PULSE 75; RESP 16; TEMP 98.8; O2SAT 100
[2024-12-20] VITALS (7 sets, daily range): BP systolic 109–131; BP diastolic 66–71; PULSE 66–80; RESP 16–20; TEMP 97.3–98.4; O2SAT 95–100
[2024-12-20 00:26] LABS: LEUKOCYTE ESTERASE ,URINE NEGATIVE (Neg); NITRITES, URINE NEGATIVE (Neg); OCCULT BLOOD,URINE TRACE-INTACT (Neg)
[2024-12-20 00:29] LABS: UA COLLECTION TYPE CLN CATCH MIDSTREAM
[2024-12-20] MEDS: sodium phos 15mmol/D5 255mL 255 ML IV ONE ×2 (00:51→00:52)
[2024-12-20 00:53] LABS: SQUAMOUS EPITHELIAL CELL,UR MODERATE /LPF (FEW)
[2024-12-20 01:02] LABS: URINE AMPHETAMINE SCREEN POSITIVE (Neg); URINE BARBITUATE SCREEN NEGATIVE (Neg); URINE BENZODIAZEPINES SCREEN NEGATIVE (Neg); URINE CANNABINOID SCREEN POSITIVE (Neg); URINE COCAINE SCREEN NEGATIVE (Neg); URINE METHADONE SCREEN POSITIVE (Neg); URINE OPIATE SCREEN POSITIVE (Neg); URINE PHENCYCLIDINE SCREEN NEGATIVE (Neg)
[2024-12-20 04:59] LABS: MEAN PLATELET VOLUME 7.5 FL (7.4-10.4); RED CELL DISTRIBUTION WIDTH 16.5 % (11.5-14.5)
[2024-12-20] MEDS: HYDROcodone/acetaminophen 5mg/325mg tablet PO PRN (05:14)
[2024-12-20 05:27] LABS: CHOL/HDL RATIO 5.0 (0.00-4.99); CREATININE 0.77 MG/DL (0.40-0.90); LDL CHOLESTEROL 31 MG/DL (50-100); TOTAL CARBON DIOXIDE 25.4 MMOL/L (24-32); eCRCL 66 ML/MIN; eGFR 76 ML/MIN
[2024-12-20 06:38] LABS: PHOSPHORUS 1.7 MG/DL (2.3-4.5)
[2024-12-20] MEDS: CefTRIAXone/D5W-Rocephin 1gm 50 ML IV SCH (08:37)
--- NOTE | 2024-12-20 08:55 | RADIOLOGY REPORT ---
INDICATION: to see liver abnormality TECHNIQUE: Multiple real-time sonographic images were obtained of the right upper quadrant. COMPARISON: CT ABDOMEN PELVIS on DOS: 12/31/21 FINDINGS: The liver demonstrates homogeneous echotexture without focal mass lesions. The liver measures 11.7 cm. There is no intrahepatic or extrahepatic ductal dilatation. The common duct measures 0.2 cm. The gallbladder is without evidence of stone or sludge. The gallbladder wall measures 0.3 cm and is within normal limits. The right kidney measures 9.7 cm. The right kidney is normal in contour, size, and shape. The echogenicity is normal. There is no hydronephrosis. The pancreas is not well visualized due to overlying bowel gas. IMPRESSION: Unremarkable right upper quadrant sonogram.
[2024-12-20] MEDS ORDERED: morphine 4 MG/ML inj SYRINge IV PRN (12:30)
[2024-12-20] MEDS: piperacillin/tazo 3.375gm/50ml 50 ML IV SCH (16:11)
--- NOTE | 2024-12-20 16:54 | PROGRESS NOTE- Residence ---
Progress Note - Resident Providers to CC Resident Creating Document: WILVER CASANOVA RES ~ Antibiotic Timeout Antibiotic Ordered?: Yes Subjective Patient was seen and examined at bedside. Patient complains of severe pain of left leg with intensity of 8/10. No acute overnight symptoms noted. Patient denies any other concerns or complaints at the moment. Objective Vital Signs Date Time Temp Pulse Resp B/P (MAP) Pulse Ox O2 Delivery O2 Flow Rate FiO2 12/20/24 12:19 16 12/20/24 10:00 97.4 78 123/71 (88) 98 Room Air 12/19/24 21:52 0 Result Diagram: 12/20/24 0440 12/20/24 0440 Awake , alert and oriented to time,place, person, in mild distress HEENT: Atraumatic, normocephalic, PERRLA, EOMI, anicteric sclera ; pink conjunctiva, moist mucos membranes Neck: Trachea midline. Supple, normal range of motion, no JVD, no lymphadenopathy Chest and Respiratory: Equal breath sounds bilaterally, no tachypnea, wheezing, ronchi,rubs .Chest wall is symmetric and without deformity. Cardiac: S1, S2 heard,Regular rate and rhythm, no murmurs heard. Abdomen: Soft, No tenderness, No guarding or rigidity, Meyers's sign negative. normal bowel sounds x4 quadrant, no hepatosplenomegaly MSK: Range of motion of all extremities are normal. There is no joint pain or joint swelling or joint erythema. There is no muscle pain or tenderness or swelling. Extremities: warm, well-perfused, No cyanosis, clubbing, 2+ pulses felt Left lower extremity - erythema, edema and tenderness present from the foot up to the mid thigh region. Warm to touch. Grade 3+ pedal edema present. Pedal pulse - 2+. One minor open wound on anterior side of left lower leg is present. No cyanosis or clubbing Right lower extremity and upper extremity- no cyanosis clubbing or edema Neurological: Speech is clear, alert, and oriented x 4. No sensory or motor deficits. Cranial nerves II-XII intact. Skin: Warm and dry Psychiatry: Affect and mood are normal Coagulation Studies Laboratory Tests Test 12/19/24 16:10 Prothrombin Time 13.1 SECONDS (9.0-12.0) H INR International Normalized Ratio 1.3 INR Activated Partial Thromboplast Time 31 SECONDS (22-32) Coagulation Comments Plan Plan Sepsis present on admission; fever,chills, marked leukocytosis, lactic acidosis Source: Most likely left leg cellulitis Patient has redness, swelling, tenderness, 2+ pedal edema with capillary refill refill time .> 2 seconds, peripheral pulses felt. X-ray of left leg showed Extensive subcutaneous edema in the area of concern. No abscess identified. CBC showed elevated white count with band cells of 26% Lactic acid is 2.7 and procalcitonin is 5.99 Preliminary blood culture is negative. Started on IV Zosyn 3.375 gms and IV vancomycin pharmacy dose Started on IV normal saline at the rate of 100 mL/hour 12/20/2024: White count down trended to 16.1 today Lactic acid is 2.0 Discontinued IV vancomycin Continue on IV Zosyn 3.375 g q.8h daily IV hydration with normal saline at the rate of 100 mL/hour Pain management with 2 tablet of Percocet 10/325 p.r.n. q. 4h and Dilaudid 1 mg q.4h p.r.n. Substance use disorder Urine toxicology is positive for opioids, fentanyl, amphetamines, cannabinoids Patient was educated and explained the risks of drug abuse Ordered Substance use navigator Services was consulted Alcoholic Cirrohsis Total bilirubin is 4.2, AST is 56, ALT 25 and ALP 113 Ammonia level is 79. Started on lactulose 20 mg p.o. q.6h daily Hypertension Continue home medication lisinopril Code status: Full code DVT prophylaxis : Heparin GI prophylaxis: Pantoprazole Nutrition: Regular diet Physical therapy: ordered Line/tube: PIV Analgesia/sedation: Dilaudid/Percocet Disposition: Patient was admitted with sepsis secondary to left leg cellulitis. Continue medical management. Resident attestation The above note has been reviewed and supervised by a senior resident PGY3 Patient was seen, examined and discussed with the attending physician Alex Casanova MD Internal Medicine Resident, PGY 1 Date of Service: Dec 20, 2024 Billing Provider: JEREMY ROMANO MD Common Visit Codes: [id number] INP/OBS CARE(HIGH) WILVER CASANOVA, SEVERIANO Dec 20, 2024 16:54 JEREMY ROMANO MD Dec 21, 2024 09:07
[2024-12-20] MEDS: lactulose 20gm/30ml cup PO SCH (21:23)
[2024-12-21] MEDS: VANCOMYCIN LEVEL IV ONE (04:51)
[2024-12-21 06:31] VITALS: BP 137/76; PULSE 68; RESP 16; TEMP 97.4; O2SAT 99
[2024-12-21 07:28] LABS: CREATININE 0.62 MG/DL (0.40-0.90); TOTAL CARBON DIOXIDE 23.7 MMOL/L (24-32); eCRCL 82 ML/MIN; eGFR > 90 ML/MIN
[2024-12-21 08:00] VITALS: RESP 16; RESP 18
[2024-12-21 08:09] LABS: MEAN PLATELET VOLUME 7.3 FL (7.4-10.4); RED CELL DISTRIBUTION WIDTH 16.5 % (11.5-14.5)
[2024-12-21] MEDS ORDERED: vancomycin/NS 1 GM ADD-VANTAGE 250 ML IV SCH (09:05)
[2024-12-21] MEDS: VANCOmycin 1250MG/NS 250ml Bag 250 ML IV SCH (09:52)
[2024-12-21] MEDS: potassium Cl 20 mEq SR tablet PO PRN (09:53)
[2024-12-21 10:16] VITALS: BP 124/72; PULSE 65; RESP 18; TEMP 97.1; O2SAT 96
--- NOTE | 2024-12-21 14:33 | PROGRESS NOTE- Residence ---
Progress Note - Resident Providers to CC Resident Creating Document: HUYEN TORRE, SEVERIANO ~ Central Line/PICC still needed: N\A Kemp-Non Protocol Kemp Indications Met/Not Met: F/C Indications Not Met Antibiotic Timeout Antibiotic Ordered?: Yes (Vancomycin, MRSA positive.) Subjective Patient was seen and examined at bedside. Patient complains of severe pain of left leg with intensity of 8/10. No acute overnight symptoms noted. Patient denies any other concerns or complaints at the moment. No altered level of consciousness, no agitation, no signs of encephalopathy Objective Vital Signs Date Time Temp Pulse Resp B/P (MAP) Pulse Ox O2 Delivery O2 Flow Rate FiO2 12/21/24 10:16 97.1 65 18 124/72 (89) 96 Room Air 12/20/24 20:00 0.0 Result Diagram: 12/21/24 0747 12/21/24 0638 General: Well alert, well oriented, not confused, not agitated, not in acute distress, well cooperated during the physical. HEENT: Conjunctive are pink, sclerae clear, no icterus, pupil is equal in both sides, reactive to light, no ear discharge, no pharyngeal erythema or an edema. Neck: Supple, no JVD, no lymphadenopathy and thyromegaly. Chest: Equal air entry on both lungs, no added sounds, no wheeze. Cardiovascular: S1-S2 regular sinus rhythm and, regular rate, no gallops, no rubs, no murmurs Abdomen: No visible peristalsis, Bowel sounds present on auscultation, soft, nontender, no guarding, no rigidity Extremities: Right leg: No obvious deformities, no pitting edema bilaterally, capillary refill intact, peripheral pulsations are intact Left leg: Localized raise of temperature, erythema present in the leg up to mid thigh. Area of erythema marked. Marked swelling 3+, tender to touch. Peripheral pulsations are intact and palpable. Central Nervous System: No focal neurological deficits, no motor or sensory weakness in all 4 extremities, could move all 4 extremities, 2+ deep tendon reflexes, negative Babinski. Musculoskeletal: No joint swelling, deformities, inflammations, and no scoliosis and back tenderness Skin: Warm and dry. Coagulation Studies Laboratory Tests Test 12/19/24 16:10 Prothrombin Time 13.1 SECONDS (9.0-12.0) H INR International Normalized Ratio 1.3 INR Activated Partial Thromboplast Time 31 SECONDS (22-32) Coagulation Comments Counseling Services Smoking & Tobacco Cessation: N/A Assessment Assessment A 59 years old female patient with PMH of hypertension, cellulitis of left lower leg in 2023 presented to ER with chief complaint of swelling of left leg and is being treated with IV vancomycin for cellulitis after testing positive for MRSA from nasal swab. Plan Plan Sepsis most likely due to left leg cellulitis SIRS criteria met fever,chills, marked leukocytosis, lactic acidosis Patient has redness, swelling, tenderness, 2+ pedal edema with capillary refill refill time .> 2 seconds, peripheral pulses felt. X-ray of left leg showed Extensive subcutaneous edema in the area of concern. No abscess identified. CBC showed elevated white count with band cells of 26% Lactic acid is 2.7 and procalcitonin is 5.99 Preliminary blood culture is negative. Started on IV Zosyn 3.375 gms and IV vancomycin pharmacy dose Started on IV normal saline at the rate of 100 mL/hour 12/20/2024: White count down trended to 16.1 today Lactic acid is 2.0 Discontinued IV vancomycin Continue on IV Zosyn 3.375 g q.8h daily IV hydration with normal saline at the rate of 100 mL/hour Pain management with 2 tablet of Percocet 10/325 p.r.n. q. 4h and Dilaudid 1 mg q.4h p.r.n. 12/21/2024: WBC count 7.4, vitals stable Nasal swab positive for MRSA Started vancomycin IV pharmacy to dose, discontinued Zosyn Pain management with Dilaudid 1 g IV q.4h p.r.n. and Percocet 10-325 p.o. q.4h p.r.n. Substance use disorder Urine toxicology is positive for opioids, fentanyl, amphetamines, cannabinoids Patient was educated and explained the risks of drug abuse Ordered Substance use navigator Services was consulted Alcoholic Cirrohsis and hypoalbuminemia Total bilirubin is 4.2, AST is 56, ALT 25 and ALP 113 Ammonia level is 79. Started on lactulose 20 mg p.o. q.6h daily 12/21/2024: No altered level of consciousness, no agitation, no signs of encephalopathy Repeat ammonia levels awaiting Reduce lactulose to 20 mg p.o. q.12h such that the patient is having 2 soft bowel movements daily Hypertension Continue home medication lisinopril 40 mg p.o. daily Hypokalemia Potassium levels of 3.3 Patient on hypokalemia/hyperkalemia protocol Code status: Full code DVT prophylaxis : Heparin 5000 units subcutaneous q.8h GI prophylaxis: Pantoprazole Nutrition: Regular diet Physical therapy: ordered Line/tube: PIV Analgesia/sedation: Dilaudid/Percocet p.r.n. Disposition: Continue medical management, MRSA positive from nasal swab. Resident attestation The above note has been reviewed and supervised by a senior resident PGY3 Patient was seen, examined and discussed with the attending physician Huyen Torre MD Internal Medicine Resident, PGY 1 [facility] Date of Service: Dec 21, 2024 Billing Provider: JEREMY ROMANO MD Common Visit Codes: [id number] INP/OBS CARE(HIGH) HUYEN TORRE, RES Dec 21, 2024 14:33 JEREMY ROMANO MD Dec 22, 2024 08:55
[2024-12-21 18:00] VITALS: BP 131/85; PULSE 74; RESP 20; TEMP 98.1; O2SAT 100
[2024-12-21 20:00] VITALS: RESP 18; O2SAT 96
[2024-12-21] MEDS: lactulose 20gm/30ml cup PO SCH (20:15)
[2024-12-21 22:00] VITALS: BP 144/75; PULSE 77; RESP 16; TEMP 98; O2SAT 98
[2024-12-22 06:00] VITALS: BP 149/83; PULSE 76; RESP 16; TEMP 98.1; O2SAT 100
[2024-12-22 06:03] LABS: MEAN PLATELET VOLUME 7.4 FL (7.4-10.4); RED CELL DISTRIBUTION WIDTH 16.8 % (11.5-14.5)
[2024-12-22 06:26] LABS: EOSINOPHILS % (MANUAL) 3.0 % (0-6); LYMPHOCYTES % (MANUAL) 15.0 % (21-51); METAMYLEOCYTES% (MANUAL) 1.0 % (0-0); MONOCYTES % (MANUAL) 16.0 % (2-12); NEUTROPHILS % (MANUAL) 65.0 % (42-75); PLATELET ESTIMATE DECREASED
[2024-12-22 07:12] LABS: CREATININE 0.53 MG/DL (0.40-0.90); TOTAL CARBON DIOXIDE 23.8 MMOL/L (24-32); eCRCL 96 ML/MIN; eGFR > 90 ML/MIN
[2024-12-22 08:00] VITALS: RESP 18; O2SAT 95
[2024-12-22 10:00] VITALS: BP 135/70; PULSE 75; RESP 19; TEMP 97.9; O2SAT 98
[2024-12-22 10:04] LABS: PHOSPHORUS 2.6 MG/DL (2.3-4.5)
--- NOTE | 2024-12-22 12:52 | PROGRESS NOTE- Residence ---
Progress Note - Resident Providers to CC Resident Creating Document: WILVER CASANOVA, RES ~ Antibiotic Timeout Antibiotic Ordered?: Yes Subjective Patient was seen at bedside. Patient still complains of pain in left leg but better than yesterday. She ambulating well. No acute overnight symptoms noted. Patient denies any other concerns at the moment. No altered level of consciousness, no agitation, no signs of encephalopathy. Objective Vital Signs Date Time Temp Pulse Resp B/P (MAP) Pulse Ox O2 Delivery O2 Flow Rate FiO2 12/22/24 10:58 16 12/22/24 08:04 75 12/22/24 08:00 95 Room Air 12/22/24 06:00 98.1 149/83 (105) 12/21/24 20:00 0.0 Result Diagram: 12/22/24 0515 12/22/24 0515 Awake , alert and oriented to time,place, person, in mild distress HEENT: Atraumatic, normocephalic, PERRLA, EOMI, anicteric sclera ; pink conjunctiva, moist mucos membranes Neck: Trachea midline. Supple, normal range of motion, no JVD, no lymphadenopathy Chest and Respiratory: Equal breath sounds bilaterally, no tachypnea, wheezing, ronchi,rubs .Chest wall is symmetric and without deformity. Cardiac: S1, S2 heard,Regular rate and rhythm, no murmurs heard. Abdomen: Soft, No tenderness, No guarding or rigidity, Meyers's sign negative. normal bowel sounds x4 quadrant, no hepatosplenomegaly MSK: Range of motion of all extremities are normal. There is no joint pain or joint swelling or joint erythema. There is no muscle pain or tenderness or swelling. Extremities: warm, well-perfused, No cyanosis, clubbing, 2+ pulses felt Left lower extremity - erythema, edema and tenderness present from the foot up to the mid thigh region, improved. Warm to touch. Grade 3+ pedal edema present. Pedal pulse - 2+. One minor open wound on anterior side of left lower leg is present. No cyanosis or clubbing Right lower extremity and upper extremity- no cyanosis clubbing or edema Neurological: Speech is clear, alert, and oriented x 4. No sensory or motor deficits. Cranial nerves II-XII intact. Skin: Warm and dry Psychiatry: Affect and mood are normal Coagulation Studies Laboratory Tests Test 12/19/24 16:10 12/22/24 11:45 Prothrombin Time 13.1 SECONDS (9.0-12.0) H INR International Normalized Ratio 1.3 INR Activated Partial Thromboplast Time 31 SECONDS (22-32) Coagulation Comments D-Dimer 5.76 MG/L FEU (0-0.50) H D-Dimer Comment Assessment Assessment A 59 years old female patient with PMH of hypertension, cellulitis of left lower leg in 2023 presented to ER with chief complaint of swelling of left leg and is being treated with IV vancomycin for cellulitis after testing positive for MRSA from nasal swab. Plan Plan Sepsis most likely due to left leg cellulitis SIRS criteria met fever,chills, marked leukocytosis, lactic acidosis Patient has redness, swelling, tenderness, 2+ pedal edema with capillary refill refill time .> 2 seconds, peripheral pulses felt. X-ray of left leg showed Extensive subcutaneous edema in the area of concern. No abscess identified. CBC showed elevated white count with band cells of 26% Lactic acid is 2.7 and procalcitonin is 5.99 Preliminary blood culture is negative. Started on IV Zosyn 3.375 gms and IV vancomycin pharmacy dose Started on IV normal saline at the rate of 100 mL/hour 12/20/2024: White count down trended to 16.1 today Lactic acid is 2.0 Discontinued IV vancomycin Continue on IV Zosyn 3.375 g q.8h daily IV hydration with normal saline at the rate of 100 mL/hour Pain management with 2 tablet of Percocet 10/325 p.r.n. q. 4h and Dilaudid 1 mg q.4h p.r.n. 12/21/2024: WBC count 7.4, vitals stable Nasal swab positive for MRSA Started vancomycin IV pharmacy to dose, discontinued Zosyn Pain management with Dilaudid 1 g IV q.4h p.r.n. and Percocet 10-325 p.o. q.4h p.r.n. 12/22/2024: White Count is 6.6, vitals are stable Continue IV vancomycin pharmacy to dose. Pain management with Dilaudid 1 g IV q.4h p.r.n. and Percocet 10-325 p.o. q.4h p.r.n. D-dimer is 5.76. No deep vein thrombosis on Venous ultrasound. Well score is 1.5. No signs of DVT or pulmonary embolism Started on Eliquis 5 mg p.o. b.i.d. daily as prophylaxis Alcoholic Cirrohsis and hypoalbuminemia Total bilirubin is 4.2, AST is 56, ALT 25 and ALP 113 Ammonia level is 79. Started on lactulose 20 mg p.o. q.6h daily 12/21/2024: No altered level of consciousness, no agitation, no signs of encephalopathy Repeat ammonia levels awaiting Reduce lactulose to 20 mg p.o. q.12h such that the patient is having 2 soft bowel movements daily. 12/22/24: Ammonia level is less than 10 Patient had 1 soft bowel movement today Continue lactulose 20 mg p.o. q.12h Substance use disorder Urine toxicology is positive for opioids, fentanyl, amphetamines, cannabinoids Patient was educated and explained the risks of drug abuse Ordered Substance use navigator [employer] was consulted Hypertension Continue home medication lisinopril 40 mg p.o. daily Hypokalemia Potassium levels of 3.3 Patient on hypokalemia/hyperkalemia protocol 12/22/24: Potassium level is 4.2 Monitor BMP levels Code status: Full code DVT prophylaxis : Eliquis 5 mg GI prophylaxis: Pantoprazole Nutrition: Regular diet Line/tube: PIV Analgesia/sedation: Dilaudid/Percocet p.r.n. Disposition: Continue medical management. Resident attestation The above note has been reviewed and supervised by a senior resident PGY3 Patient was seen, examined and discussed with the attending physician Alex Casanova MD Internal Medicine Resident, PGY 1 Date of Service: Dec 22, 2024 Billing Provider: JEREMY ROMANO MD Common Visit Codes: [id number] INP/OBS CARE(HIGH) WILVER CASANOVA, RES Dec 22, 2024 12:52 JEREMY ROMANO MD Dec 23, 2024 06:45
--- NOTE | 2024-12-22 13:09 | VASCULAR REPORT ---
LEFT LOWER EXTREMITY VENOUS DUPLEX REASON FOR EXAMINATION: Left lower extremity pain and edema. COMPARISON: CT CT LOWER EXTREMITY on DOS: 10/21/23, VASC VL VENOUS on DOS: 10/20/23, VASC VL VENOUS on DOS: 10/12/23 TECHNIQUE: Using real-time freeze-frame technique with a high-frequency transducer, multiple longitudinal and transverse sections were obtained. Simultaneous color flow and spectral Doppler imaging was performed. FINDINGS: There is good visualization of the deep venous system with no intraluminal filling defects identified. Normal venous compressibility is seen and there is flow augmentation. Color flow Doppler imaging is unremarkable. IMPRESSION: NO EVIDENCE OF DEEP VENOUS THROMBOSIS.
[2024-12-22] MEDS: nicotine 7mg patch - 24hr TD SCH (17:45)
[2024-12-22 18:00] VITALS: BP 157/79; PULSE 75; RESP 18; TEMP 98.3; O2SAT 97
[2024-12-22 20:00] VITALS: RESP 18
[2024-12-22] MEDS: VANCOMYCIN LEVEL IV ONE (20:35)
[2024-12-22 22:00] VITALS: BP 155/83; PULSE 76; RESP 20; TEMP 97.9; O2SAT 100
[2024-12-23 06:00] VITALS: BP 136/66; PULSE 74; RESP 16; TEMP 98; O2SAT 99
[2024-12-23 06:11] LABS: MEAN PLATELET VOLUME 7.5 FL (7.4-10.4); RED CELL DISTRIBUTION WIDTH 16.8 % (11.5-14.5)
[2024-12-23 07:08] LABS: CREATININE 0.51 MG/DL (0.40-0.90); TOTAL CARBON DIOXIDE 24.8 MMOL/L (24-32); eCRCL 100 ML/MIN; eGFR > 90 ML/MIN
[2024-12-23 08:57] LABS: BANDS% (MANUAL) 5.0 % (0-10); LYMPHOCYTES % (MANUAL) 14.0 % (21-51); METAMYLEOCYTES% (MANUAL) 1.0 % (0-0); MONOCYTES % (MANUAL) 12.0 % (2-12); NEUTROPHILS % (MANUAL) 68.0 % (42-75); PLATELET ESTIMATE DECREASED
[2024-12-23] MEDS: NICOTINE POLACRILEX 2 MG LOZENGE BC PRN (09:39)
[2024-12-23 12:00] VITALS: BP 138/76; PULSE 66; RESP 16; TEMP 97.8; O2SAT 98
--- NOTE | 2024-12-23 13:40 | PROGRESS NOTE- Residence ---
Progress Note - Resident Providers to CC Resident Creating Document: WILVER CASANOVA, RES ~ Antibiotic Timeout Antibiotic Ordered?: Yes Subjective Patient was seen at bedside. Patient endorses that her pain improved significantly. She is able to walk. No acute overnight symptoms noted. Patient denies any concerns or complaints at the moment. Objective Vital Signs Date Time Temp Pulse Resp B/P (MAP) Pulse Ox O2 Delivery O2 Flow Rate FiO2 12/23/24 09:41 Room Air 12/23/24 09:31 16 12/23/24 08:00 0.0 12/23/24 07:44 70 12/22/24 22:00 97.9 155/83 (107) 100 Result Diagram: 12/23/2443512/23/24435 Awake , alert and oriented to time,place, person, not in distress HEENT: Atraumatic, normocephalic, PERRLA, EOMI, anicteric sclera ; pink conjunctiva, moist mucos membranes Neck: Trachea midline. Supple, normal range of motion, no JVD, no lymphadenopathy Chest and Respiratory: Equal breath sounds bilaterally, no tachypnea, wheezing, ronchi,rubs .Chest wall is symmetric and without deformity. Cardiac: S1, S2 heard,Regular rate and rhythm, no murmurs heard. Abdomen: Soft, No tenderness, No guarding or rigidity, Meyers's sign negative. normal bowel sounds x4 quadrant, no hepatosplenomegaly MSK: Range of motion of all extremities are normal. There is no joint pain or joint swelling or joint erythema. There is no muscle pain or tenderness or swelling. Extremities: warm, well-perfused, No cyanosis, clubbing, 2+ pulses felt Left lower extremity - erythema, edema and tenderness present from the foot up to the mid thigh region, improved significantly. Warm to touch . Grade 2+ pedal edema present. Pedal pulse - 2+. One minor open wound on anterior side of left lower leg is present. No cyanosis or clubbing Right lower extremity and upper extremity- no cyanosis clubbing or edema Neurological: Speech is clear, alert, and oriented x 4. No sensory or motor deficits. Cranial nerves II-XII intact. Skin: Warm and dry Psychiatry: Affect and mood are normal Coagulation Studies Laboratory Tests Test 12/19/24 16:10 12/22/24 11:45 Prothrombin Time 13.1 SECONDS (9.0-12.0) H INR International Normalized Ratio 1.3 INR Activated Partial Thromboplast Time 31 SECONDS (22-32) Coagulation Comments D-Dimer 5.76 MG/L FEU (0-0.50) H D-Dimer Comment Assessment Assessment A 59 years old female patient with PMH of hypertension, cellulitis of left lower leg in 2023 presented to ER with chief complaint of swelling of left leg and is being treated with IV vancomycin for sepsis secondary to cellulitis after testing positive for MRSA from nasal swab. Plan Plan Sepsis most likely due to left leg cellulitis SIRS criteria met fever,chills, marked leukocytosis, lactic acidosis Patient has redness, swelling, tenderness, 2+ pedal edema with capillary refill refill time .> 2 seconds, peripheral pulses felt. X-ray of left leg showed Extensive subcutaneous edema in the area of concern. No abscess identified. CBC showed elevated white count with band cells of 26% Lactic acid is 2.7 and procalcitonin is 5.99 Preliminary blood culture is negative. Started on IV Zosyn 3.375 gms and IV vancomycin pharmacy dose Started on IV normal saline at the rate of 100 mL/hour 12/20/2024: White count down trended to 16.1 today Lactic acid is 2.0 Discontinued IV vancomycin Continue on IV Zosyn 3.375 g q.8h daily IV hydration with normal saline at the rate of 100 mL/hour Pain management with 2 tablet of Percocet 10/325 p.r.n. q. 4h and Dilaudid 1 mg q.4h p.r.n. 12/21/2024: WBC count 7.4, vitals stable Nasal swab positive for MRSA Started vancomycin IV pharmacy to dose, discontinued Zosyn Pain management with Dilaudid 1 g IV q.4h p.r.n. and Percocet 10-325 p.o. q.4h p.r.n. 12/22/2024: White Count is 6.6, vitals are stable Continue IV vancomycin pharmacy to dose. Pain management with Dilaudid 1 g IV q.4h p.r.n. and Percocet 10-325 p.o. q.4h p.r.n. D-dimer is 5.76. No deep vein thrombosis on Venous ultrasound. Well score is 1.5. No signs of DVT or pulmonary embolism Started on Eliquis 5 mg p.o. b.i.d. daily as prophylaxis 12/23/2024: White count is in normal limits, vitals are stable Continue IV vancomycin pharmacy to dose. Pain management with Dilaudid 1 g IV q.4h p.r.n. and Percocet 10-325 p.o. q.4h p.r.n. Continue Eliquis 5 mg p.o. b.i.d. daily as prophylaxis Alcoholic Cirrohsis and hypoalbuminemia Total bilirubin is 4.2, AST is 56, ALT 25 and ALP 113 Ammonia level is 79. Started on lactulose 20 mg p.o. q.6h daily 12/21/2024: No altered level of consciousness, no agitation, no signs of encephalopathy Repeat ammonia levels awaiting Reduce lactulose to 20 mg p.o. q.12h such that the patient is having 2 soft bowel movements daily. 12/22/24: Ammonia level is less than 10 Patient had 1 soft bowel movement today Continue lactulose 20 mg p.o. q.12h 12/23/24: Patient has 4 bowel movements from yesterday. Discontinue lactulose. Substance use disorder Urine toxicology is positive for opioids, fentanyl, amphetamines, cannabinoids Patient was educated and explained the risks of drug abuse Ordered Substance use navigator [employer] was consulted Hypertension Continue home medication lisinopril 40 mg p.o. daily Hypokalemia Potassium levels of 3.3 Patient on hypokalemia/hyperkalemia protocol 12/22/24: Potassium level is 4.2 Monitor BMP levels 12/23/24: Potassium level is 3.6, monitor BMP levels Code status: Full code DVT prophylaxis : Eliquis 5 mg GI prophylaxis: Pantoprazole Nutrition: Regular diet Line/tube: PIV Analgesia/sedation: Dilaudid/Percocet p.r.n. Disposition: Patient improved significantly. Patient is doing well. Anticipate discharge in next 24 hours. Resident attestation The above note has been reviewed and supervised by a senior resident PGY3 Patient was seen, examined and discussed with the attending physician Alex Casanova MD Internal Medicine Resident, PGY 1 Date of Service: Dec 23, 2024 Billing Provider: JEREMY ROMANO MD Common Visit Codes: [id number] INP/OBS CARE(HIGH) WILVER CASANOVA, RES Dec 23, 2024 13:40 JEREMY ROMANO MD Dec 24, 2024 07:53
[2024-12-23] MEDS ORDERED: nicotine 7mg patch - 24hr TD SCH (17:00)
[2024-12-23 18:00] VITALS: BP 142/74; PULSE 69; RESP 15; TEMP 98.1; O2SAT 98
[2024-12-23 20:00] VITALS: RESP 16; O2SAT 96
[2024-12-23] MEDS: VANCOMYCIN/WATER FOR INJ (PEG) 1.5GM/300 ML IVPB IV SCH (20:41)
[2024-12-23 22:00] VITALS: BP 151/83; PULSE 80; RESP 18; TEMP 98.4; O2SAT 96
[2024-12-24 05:31] LABS: CREATININE 0.55 MG/DL (0.40-0.90); TOTAL CARBON DIOXIDE 27.4 MMOL/L (24-32); eCRCL 93 ML/MIN; eGFR > 90 ML/MIN
[2024-12-24 05:38] LABS: MEAN PLATELET VOLUME 7.2 FL (7.4-10.4); RED CELL DISTRIBUTION WIDTH 17.0 % (11.5-14.5)
[2024-12-24 06:45] VITALS: BP 135/78; PULSE 73; RESP 14; TEMP 98.1; O2SAT 97
[2024-12-24 10:25] VITALS: BP 142/85; PULSE 76; RESP 16; TEMP 97.8; O2SAT 98
[2024-12-24] MEDS ORDERED: LINE600T11 PO (11:34)
[2024-12-24] MEDS ORDERED: OXYC1TAB17 PO (11:34)
--- NOTE | 2024-12-24 14:46 | DISCHARGE SUMMARY-Residence ---
Discharge Summary Providers to CC Resident Creating Document: WILVER MORGAN MARCELA, RES ~ Discharge Summary Admission Diagnosis: LEFT LOWER EXTRMITY CELLULITIS Hospital Course DATE OF ADMISSION: 12/19/24 DATE OF DISCHARGE: 12/24/2024 Discharge Diagnosis\Comment: Sepsis POA resolved Secondary to cellulitis of left leg Hypokalemia, resolved Alcoholic Cirrohsis Substance use disorder Hypertension Operations\Procedures: None Consultants: None Complications: None Condition on DC: Stable New Medications: Linezolid (ZYVOX tablet) 600 Mg Tablet 600 MG PO Q12H, #14 TAB Oxycodone Hcl/Acetaminophen (Oxycodone-Acetaminophen 10-325) 10 Mg-325 Mg Tablet 2 TAB PO Q6H PRN for moderate or severe pain 4-10, #20 TAB Continued Medications: Lisinopril* (Lisinopril*) 40 Mg Tablet 1 TAB PO DAILY for 30 Days, #30 TAB Discharge Summary: History of present illness: A 59 years old female patient with PMH of hypertension, cellulitis of left lower leg in 2023 presented to ER with chief complaint of swelling of left leg. She reports that she had minor wound on anterior side of left lower leg x 3 days back, redness and swelling started on left lower leg and gradually progressive to upper thigh region associated with severe pain of 8 x 10 in intensity. She also complains of fever, headache and chills. She stated that she stays in a truck with a roommate and that the place is unhygienic. She denies any trauma at the site of infection and is not a diabetic. Denies any nausea, vomiting, abdominal pain, constipation or diarrhea, dizziness or syncope, fall, chest pain, shortness of breath or any symptoms. Hospital course: Patient admitted with cellulitis of left lower leg. Extensive subcutaneous edema on x-ray of left foot. Patient has redness, swelling, tenderness, 2+ pedal edema with capillary refill refill time > 2 seconds, peripheral pulses felt. Patient had fever,chills, marked leukocytosis, lactic acidosis,procalcitonin is 5.99. SIRS criteria met .Preliminary blood culture is negative. Initially started on IV Zosyn and IV vancomycin. Lactic acidosis improved was treated with IV normal saline.Pain management with 2 tablet of Percocet 10/325 p.r.n. q. 4h and Dilaudid 1 mg q.4h p.r.n. Nasal swab was positive for MRSA. Discontinue Zosyn and treated with IV vancomycin. Redness, erythema, swelling of the leg improved significantly. Patient was able to ambulate comfortably. D-dimer was 5.76. No deep vein thrombosis on Venous ultrasound. Well score is 1.5. No signs of DVT or pulmonary embolism. Started on Eliquis 5 mg p.o. b.i.d. daily as prophylaxis. Urine toxicology is positive for opioids, fentanyl, amphetamines, cannabinoids. Patient was educated and explained the risks of drug abuse. Patient had mild hypokalemia, resolved potassium replacement protocol. WBC counts trended down to normal limits, vitals are stable. Patient condition was stable at the time of discharge. Discharge instructions: Advised to follow up with PCP in 2 weeks. Advised to take Zyvox 600 mg b.i.d. for 1 week Advised to take 2 tablets of Percocet 10/325 pain PRN Advised to continue home medication lisinopril 40 mg p.o. daily In case of any worsening symptoms, call 911 or go to ER immediately. Imaging: Chest x-ray: NO ACUTE CARDIOPULMONARY PROCESS. X-ray of left leg: Extensive subcutaneous edema in the area of concern. No abscess identified. Abdominal ultrasound: Unremarkable right upper quadrant sonogram. Vascular ultrasound: NO EVIDENCE OF DEEP VENOUS THROMBOSIS. Vital Signs Date Time Temp Pulse Resp B/P (MAP) Pulse Ox O2 Delivery O2 Flow Rate FiO2 12/24/24 10:25 97.8 76 16 142/85 (104) 98 Room Air 12/23/24 08:00 0.0 Laboratory Tests Test 12/22/24 20:30 12/23/24 04:36 12/24/24 04:31 Vancomycin Level Trough 13.1 ug/mL White Blood Count 5.2 X10'3 5.8 X10'3 Red Blood Count 4.41 X10'6 4.19 X10'6 Hemoglobin 12.1 g/dl 11.5 g/dl Hematocrit 35.5 % 33.6 % Mean Corpuscular Volume 80.5 FL 80.1 FL Mean Corpuscular Hemoglobin 27.4 PG 27.3 PG Mean Corpuscular Hemoglobin Concent 34.1 g/dL 34.1 g/dL Red Cell Distribution Width 16.8 % 17.0 % Platelet Count 96 X10'3 110 X10'3 Mean Platelet Volume 7.5 FL 7.2 FL Neutrophils (%) (Auto) 63.9 % 69.2 % Lymphocytes (%) (Auto) 20.8 % 19.2 % Monocytes (%) (Auto) 10.6 % 7.3 % Eosinophils (%) (Auto) 4.2 % 3.5 % Basophils (%) (Auto) 0.5 % 0.8 % Neutrophils # (Auto) 3.3 X10'3 4.0 X10'3 Lymphocytes # (Auto) 1.1 X10'3 1.1 X10'3 Monocytes # (Auto) 0.5 X10'3 0.4 X10'3 Eosinophils # (Auto) 0.2 X10'3 0.2 X10'3 Basophils # (Auto) 0.0 X10'3 0.0 X10'3 CBC Comment Differential Total Cells Counted 100 Neutrophils % (Manual) 68.0 % Band Neutrophils % 5.0 % Lymphocytes % (Manual) 14.0 % Monocytes % (Manual) 12.0 % Metamyelocytes % 1.0 % Platelet Estimate Decreased Red Blood Cell Morphology Perf Poikilocytosis 1+ Basophilic Stippling Anisocytosis 1+ Sodium Level 141 MMOL/L 139 MMOL/L Potassium Level 3.6 MMOL/L 4.2 MMOL/L Chloride Level 110 MMOL/L 107 MMOL/L Carbon Dioxide Level 24.8 MMOL/L 27.4 MMOL/L Anion Gap 6 5 Blood Urea Nitrogen 7 MG/DL 7 MG/DL Creatinine 0.51 MG/DL 0.55 MG/DL Estimated GFR/1.73 m2 > 90 ML/MIN > 90 ML/MIN BUN/Creatinine Ratio 13.7 12.7 Glucose Level 106 MG/DL 106 MG/DL Calcium Level 7.6 MG/DL 8.1 MG/DL Albumin 1.9 G/DL 1.8 G/DL Chemistry Comments Physical Exam at discharge: Awake , alert and oriented to time,place, person, not in distress HEENT: Atraumatic, normocephalic, PERRLA, EOMI, anicteric sclera ; pink conjunctiva, moist mucos membranes Neck: Trachea midline. Supple, normal range of motion, no JVD, no lymphadenopathy Chest and Respiratory: Equal breath sounds bilaterally, no tachypnea, wheezing, ronchi,rubs .Chest wall is symmetric and without deformity. Cardiac: S1, S2 heard,Regular rate and rhythm, no murmurs heard. Abdomen: Soft, No tenderness, No guarding or rigidity, Meyers's sign negative. normal bowel sounds x4 quadrant, no hepatosplenomegaly MSK: Range of motion of all extremities are normal. There is no joint pain or joint swelling or joint erythema. There is no muscle pain or tenderness or swelling. Extremities: warm, well-perfused, No cyanosis, clubbing, 2+ pulses felt Left lower extremity - erythema, edema of leg improved significantly. No tenderness. Mild pedal edema present. Pedal pulse - 2+. No cyanosis or clubbing Right lower extremity and upper extremity- no cyanosis clubbing or edema Neurological: Speech is clear, alert, and oriented x 4. No sensory or motor deficits. Cranial nerves II-XII intact. Skin: Warm and dry Psychiatry: Affect and mood are normal *Problems/Diagnosis: (1) Sepsis (2) Cellulitis of left leg (3) Hypokalemia (4) Hypertension (5) Substance use disorder (6) Alcoholic cirrhosis Total Time Spent on D/C: > 30 Minutes Date of Service: Dec 24, 2024 Billing Provider: JEREMY ROMANO MD Common Visit Codes: 83846-DUT/OBS DISCH DAY >30min WILVER MORGAN, RES Dec 24, 2024 14:17 JEREMY ROMANO MD Dec 25, 2024 06:42
[2024-12-25] MEDS ORDERED: VANCOMYCIN LEVEL IV ONE (08:30)
== END 2024-12-24 13:12 | disposition home or self-care (01) | DRG 720 ==
LOC: ER 14:26 → ED HOLD 17:46 → SUR 3N 23:30
PROVIDERS: ADMIT Internal Medicine; ATTEND Internal Medicine
DX: A41.9 Sepsis, unspecified organism (principal); E87.20 Acidosis, unspecified; L03.116 Cellulitis of left lower limb; K70.30 Alcoholic cirrhosis of liver without ascites; F17.210 Nicotine dependence, cigarettes, uncomplicated; I10 Essential (primary) hypertension; G89.29 Other chronic pain; E87.6 Hypokalemia; E88.09 Other disorders of plasma-protein metabolism, not elsewhere classified
CPT/HCPCS: 36415; 71045; 76700; 76882; 80048; 80053; 80202; 80305; 81001; 81003; 82140; 82550; 83036; 83605; 83735; 83880; 84100; 84145; 84484; 85007; 85025; 85379; 85610; 85730; 87040; 87081; 93971; 96365; 96375; 97116; 97161; 97530; 99285; A6258; G0378; J0131; J0696; J1171; J1644; J2270; J2543; J3373; J3374; J3375; J3490; J7030; Q0163